=== PATIENT | female | born 1945 | race African-American/Black ===

== ENCOUNTER → 2016-09-16 | Outpatient (CLI) | payer MEDICARE, MEDICAID ==
--- NOTE | 2016-09-16 14:40 | WOMENS IMAGING REPORT ---
EXAM DESCRIPTION: BONE DENSITY HIP/SPINE COMPLETED DATE/TIME: 09/16/2016 2:00 pm REASON FOR STUDY: M81.0 Z12.31 ENCNTR SCREEN MAMMOGRAM FOR MALIGNANT NEOPLASM OF MELANIE M81.0 AGE-REL ATED OSTEOPOROSIS W/O CURRENT PATHOLOGICAL FRAC COMPARISON: None. TECHNIQUE: Dual-Energy X-ray Absorptiometry (DEXA) of the AP Spine and Hip. LIMITATIONS: None. FINDINGS: LUMBAR SPINE: The bone mineral density (BMD) measured from L1-L4 in the AP projection correlates with a T-score of -0.1, which is normal as defined by the World Health Organization. HIP: The bone mineral density (BMD) measured in the left femoral neck correlates with a T-score of -0.5, w hich is normal as defined by the World Health Organization. IMPRESSION: 1. LUMBAR SPINE: Normal 2. HIP: Normal COMMENT: The World Health Organization defines low BMD as follows: T-score: Normal: Greater than -1.0 Osteopenia: Between -1.0 and -2.5 Osteoporosis: Less than -2.5 without fractures Established osteoporosis: Less than -2.5 with fractures In general, you may wish to consider: Diagnosis Treatment Follow-up DEXA Normal BMD Prevention 2-3 years Osteopenia Prevention/Therapy 1-2 years Osteoporosis Therapy Yearly TECHNICAL DOCUMENTATION: JOB ID: [id number]- All Rights Reserved
--- NOTE | 2016-09-16 17:58 | WOMENS IMAGING REPORT ---
EXAM DESCRIPTION: BILAT SCREENING MAMMO W/CAD COMPLETED DATE/TIME: 09/16/2016 2:00 pm REASON FOR STUDY: Z12.31, ROUTINE SCREENING MAMMO Z12.31 ENCNTR SCREEN MAMMOGRAM FOR MALIGNANT NEOP LASM OF MELANIE M81.0 AGE-RELATED OSTEOPOROSIS W/O CURRENT PATHOLOGICAL FRAC COMPARISON: Multiple since 2008 TECHNIQUE: Standard craniocaudal and mediolateral oblique views of each breast recorded using digita l acquisition. LIMITATIONS: None. FINDINGS: Findings present which are benign by mammographic criteria. No suspicious masses, calcifi cations or architectural distortion. Pertinent benign findings: Benign bilateral breast skin calcifications Read with the assistance of CAD. .[facility] - R2 Cenova Version 1.3 .[facility] Imaging - R2 Cenova Version 1.[address] Imaging - R2 Cenova Version 2.4 .[facility] [place] - R2 Cenova Version 2.4 .[facility] - R2 Roll Hand Version 9.2 Benign mammographic findings may include one or more of the following: Smooth masses, popcorn/rim/co arse calcifications, asymmetries, post-procedure changes, and lesions with long-standing stability. IMPRESSION: BENIGN MAMMOGRAPHIC FINDINGS. BIRADS 2 BREAST DENSITY: a. The breasts are almost entirely fatty. BIRAD: 2 BENIGN FINDING(S) RECOMMENDATION: ROUTINE SCREENING COMMENT: The patient has been notified of the results by letter per SA requirements. Additional no tification policies are in place for contacting patient with suspicious or incomplete findings. Quality ID #[id number]: The [place] [employer] recommends an annual screening mammogram for women aged 40 years or over. This facility utilizes a reminder system to ensure that all patients receive reminder letters, and/or direct phone calls for appointments. This includes reminders for routine scr eening mammograms, diagnostic mammograms, or other Breast Imaging Interventions when appropriate. Th is patient will be placed in the appropriate reminder system. The [place] [employer] (ACR) has developed recommendations for screening MRI of the breast s in certain patient populations, to be used in conjunction with mammography. Breast MRI surveillanc e may be appropriate for women with more than 20% lifetime risk of developing breast cancer as deter mined by genetic testing, significant family history of the disease, or history of mantle radiation f or Hodgkins Disease. ACR Practice Guidelines 2008. TECHNICAL DOCUMENTATION: FINDING NUMBER: (1) ASSESSMENT: (1) JOB ID: [id number] [employer])- All Rights Reserved
== END ==
LOC: WI 14:05
PROVIDERS: ATTEND Family Medicine
DX: Z12.31 Encounter for screening mammogram for malignant neoplasm of breast (principal); M81.0 Age-related osteoporosis without current pathological fracture
CPT/HCPCS: 77080; G0202; 77067

== ENCOUNTER → 2017-11-10 | Outpatient (CLI) | payer MEDICARE, MEDICAID ==
--- NOTE | 2017-11-10 20:37 | XCELERA REPORT ---
[address] [address] Transthoracic Echocardiogram Report Name: WILD CALDERON Age: 72 yrs Gender: Female : 1945 Patient Status: Outpatient Patient Location: RAD Study Date: 11/10/2017 02:06 PM Height: 55 in Weight: 250 lb BSA: 1.9 m2 Procedure: A complete two-dimensional transthoracic echocardiogram was performed (2D, M-mode, spectral and color flow Doppler). The study was technically difficult with many images being suboptimal in quality. Reason For Study: SOB Ordering Physician: TYE MCCRACKEN Performed By: Marietta Alcaraz Interpretation Summary The left ventricular ejection fraction is preserved. Consider additional methods to assess LVEF such as MUGA scan, CTA heart, cardiac MRI, GARCIA, etc. if clinically indicated. There is mild concentric left ventricular hypertrophy. The left ventricle is grossly normal size. Doppler measurements suggest pseudonormalized left ventricular relaxation, which is associated with grade II/IV or mild to moderate diastolic dysfunction Not all wall segments were well visualized. Regional wall motion abnormalities cannot be excluded due to limited visualization. The right ventricle is mildly dilated. The right ventricle appears to be hypertrophied Right ventricular function cannot be assessed due to poor image quality. The left atrium is mildly dilated. The right atrium is mildly dilated. There is a trace amount of mitral regurgitation There is no mitral valve stenosis. There is no aortic valve stenosis No aortic regurgitation is present. There is no tricuspid stenosis. No tricuspid regurgitation. The aortic root is not well visualized but is probably normal size. The inferior vena cava appeared normal and decreased > 50% with respiration (RAP 5-10 mmHg) There is no pericardial effusion. MMode/2D Measurements & Calculations RVDd: 3.3 cm LVIDd: 4.3 cm FS: 37.9 % Ao root diam: 2.8 cm IVSd: 0.93 cm LVIDs: 2.7 cm EDV(Teich): Ao root area: 83.5 ml LVPWd: 0.95 cm 6.1 cm2 ESV(Teich): 26.4 ml EF(Teich): 68.4 % EDV(MOD-sp4): SV(MOD-sp4): 53.3 ml 40.8 ml ESV(MOD-sp4): 12.5 ml EF(MOD-sp4): 76.6 % Doppler Measurements & Calculations MV E max neetu: MV dec slope: Ao V2 max: LV V1 max P.3 cm/sec 112.5 cm/sec 2.7 mmHg MV A max neetu: 500.4 cm/sec2 Ao max PG: LV V1 max: 99.7 cm/sec MV dec time: 0.20 sec5.1 mmHg 81.6 cm/sec MV E/A: 1.00 PA V2 max: TR max neetu: 99.3 cm/sec 251.0 cm/sec PA max P.9 mmHg TR max P.2 mmHg Left Ventricle The left ventricle is grossly normal size. There is mild concentric left ventricular hypertrophy. The left ventricular ejection fraction is preserved. Consider additional methods to assess LVEF such as MUGA scan, CTA heart, cardiac MRI, GARCIA, etc. if clinically indicated. Doppler measurements suggest pseudonormalized left ventricular relaxation, which is associated with grade II/IV or mild to moderate diastolic dysfunction. Not all wall segments were well visualized. Regional wall motion abnormalities cannot be excluded due to limited visualization. Right Ventricle The right ventricle is mildly dilated. The right ventricle appears to be hypertrophied. Right ventricular function cannot be assessed due to poor image quality. Atria The right atrium is mildly dilated. The left atrium is mildly dilated. Interarterial septum not well visualized and not well dopplered. Cannot comment on ASD/PFO presence. Mitral Valve The mitral valve is grossly normal. There is no mitral valve stenosis. There is a trace amount of mitral regurgitation. Aortic Valve The aortic valve is not well visualized secondary to technical limitations. There is no aortic valve stenosis. No aortic regurgitation is present. Tricuspid Valve The tricuspid valve is not well visualized secondary to technical limitations. There is no tricuspid stenosis. No tricuspid regurgitation. Pulmonic Valve The pulmonic valve is not well visualized. Great Vessels The aortic root is not well visualized but is probably normal size. The inferior vena cava appeared normal and decreased > 50% with respiration (RAP 5-10 mmHg). Effusions There is no pericardial effusion. : TYE MCCRACKEN > Maria Guadalupe Carlos
== END ==
LOC: RAD 13:53
PROVIDERS: ATTEND Family Medicine
DX: R06.02 Shortness of breath (principal)
CPT/HCPCS: 93306

== ENCOUNTER 2017-12-14 20:58 | Inpatient (IN) | payer MEDICARE, MEDICAID ==
[2017-12-14 21:40] LABS: HEMATOCRIT 36.7 % (36.0-47.0); HEMOGLOBIN 12.3 g/dL (12.0-15.5); MEAN CORPUSCULAR HEMOGLOBIN 28.7 pg (27.0-33.4); MEAN CORPUSCULAR HGB CONC 33.4 g/dL (32.0-36.0); MEAN CORPUSCULAR VOLUME 86 fl (80-97); PLATELET COUNT 213 10^3/uL (150-450); RED BLOOD COUNT 4.28 10^6/uL (3.72-5.28); RED CELL DISTRIBUTION WIDTH 14.8 % (11.5-14.0)
[2017-12-14 21:49] LABS: INTERNATIONAL RATION (INR) 1.28; PROTHROMBIN TIME 16.6 SEC (11.4-15.4)
--- NOTE | 2017-12-14 21:56 | RADIOLOGY REPORT (SQ) ---
EXAM DESCRIPTION: XR CHEST 1 VIEW COMPLETED DATE/TME: 12/14/2017 21:26 CLINICAL HISTORY: 72 years, Female, ams COMPARISON: 07/29/2013. FINDINGS: Heart is mildly enlarged. No consolidation or pleural effusion. No pulmonary edema or pneumothorax. IMPRESSION: No acute disease.
[2017-12-14 22:00] LABS: ALANINE AMINOTRANSFERASE 27 U/L (9-52); ALKALINE PHOSPHATASE 124 U/L (38-126); ANION GAP 14 (5-19); ASPARTATE AMINO TRANSFERASE 48 U/L (14-36); BILIRUBIN,DIRECT 1.1 mg/dL (0.0-0.4); BILIRUBIN,TOTAL 2.5 mg/dL (0.2-1.3); BLOOD UREA NITROGEN 50 mg/dL (7-20); CALCIUM 8.2 mg/dL (8.4-10.2); CARBON DIOXIDE 23 mmol/L (22-30); CHLORIDE 99 mmol/L (98-107); GLUCOSE 171 mg/dL (75-110); POTASSIUM 3.7 mmol/L (3.6-5.0); SODIUM 136.1 mmol/L (137-145)
[2017-12-14 22:05] LABS: ABSOLUTE LYMPHOCYTES# (MANUAL) 0.7 10^3/uL (0.5-4.7); ABSOLUTE MONOCYTES # (MANUAL) 0.7 10^3/uL (0.1-1.4); ABSOLUTE NEUTROPHILS# (MANUAL) 21.6 10^3/uL (1.7-8.2); BASOPHILS % (MANUAL) 0 % (0-2); EOSINOPHILS % (MANUAL) 0 % (0-6); LYMPHOCYTES % (MANUAL) 3 % (13-45); MONOCYTES % (MANUAL) 3 % (3-13); SEGMENTED NEUTROPHILS % (MAN) 94 % (42-78); TOTAL CELLS COUNTED 100
[2017-12-14 22:06] LABS: ANISOCYTOSIS 1+; PLATELET COMMENT ADEQUATE; POLYCHROMASIA 1+
[2017-12-14] MEDS ORDERED: PIPERACILLIN/TAZOBACTAM 3.375 GM VIAL IV ONE (22:19)
--- NOTE | 2017-12-14 22:19 | ER Document Report ---
ED General - General Chief Complaint: Breathing Difficulty Stated Complaint: ALTERED MENTAL STATUS Time Seen by Provider: 12/14/17 21:26 Mode of Arrival: Ambulatory Information source: Relative, [facility] Records Cannot obtain history due to: Altered mental status Notes: 72-year-old female with hypertension, hyperlipidemia, coronary artery disease presents via EMS from home with her daughter who is concerned for confusion, abdominal pain. Daughter reports that the patient began complaining of abdominal pain yesterday. She states that her mother slept all day which is unusual for her. She states that she is more confused than usual. She is usually alert and oriented 3 but today cannot tell you the year or her birthday. Patient currently alert and oriented 1. TRAVEL OUTSIDE OF THE [place] IN LAST 30 DAYS: No - HPI Onset: Yesterday Onset/Duration: Gradual, Intermittent Associated symptoms: denies: Diarrhea, Fever, Vomiting - Related Data Allergies/Adverse Reactions: No Known Allergies Allergy (Verified 01/28/17 12:35) Past Medical History - General Information source: Relative, [facility] Records Cannot obtain history due to: Altered mental status - Social History Smoking Status: Former Smoker Frequency of alcohol use: None Drug Abuse: None Lives with: Family Family History: None, Reviewed & Not Pertinent - Past Medical History Cardiac Medical History: Reports: Hx Hypertension Denies: Hx Coronary Artery Disease - HIGH CHOLESTEROL, Hx Heart Attack Pulmonary Medical History: Reports: Hx Pneumonia - 1 year ago Denies: Hx Asthma, Hx Bronchitis, Hx COPD, Hx Tuberculosis Neurological Medical History: Denies: Hx Cerebrovascular Accident, Hx Seizures Renal/ Medical History: Denies: Hx Peritoneal Dialysis Musculoskeletal Medical History: Reports Hx Arthritis - "IN BACK" Psychiatric Medical History: Denies: Hx Depression Past Surgical History: Reports: Hx Hysterectomy. Denies: Hx Pacemaker - Immunizations Hx Diphtheria, Pertussis, Tetanus Vaccination: No Hx Pneumococcal Vaccination: 03/24/12 Review of Systems - Review of Systems -: Yes ROS unobtainable due to patient's medical condition Physical Exam - Vital signs Vitals: Temp Pulse BP Pulse Ox 99.4 F 132 H 94/38 L 92 12/14/17 21:08 12/14/17 21:08 12/14/17 21:08 12/14/17 21:08 Interpretation: Hypotensive, Tachycardic - Notes Notes: PHYSICAL EXAMINATION: GENERAL: Ill-appearing HEAD: Atraumatic, normocephalic. EYES: Pupils equal round and reactive to light, extraocular movements intact, conjunctiva are normal. ENT: Nares patent, oropharynx clear without exudates. Dry mucous membranes. NECK: Normal range of motion, supple without lymphadenopathy LUNGS: Breath sounds clear to auscultation bilaterally and equal. No wheezes rales or rhonchi. HEART: Tachycardic, regular rhythm ABDOMEN: Soft, nontender, nondistended abdomen. No guarding, no rebound. No masses appreciated. Female : deferred Musculoskeletal: Normal range of motion, no pitting or edema. No cyanosis. NEUROLOGICAL: GCS 10. Nonverbal. Does not follow commands PSYCH: Flat affect SKIN: Warm, Dry, normal turgor, no rashes or lesions noted. Course - Re-evaluation Re-evalutation: Laboratory 12/14/17 12/14/17 12/14/17 21:27 21:27 21:27 WBC 23.0 H RBC 4.28 Hgb 12.3 Hct 36.7 MCV 86 MCH 28.7 MCHC 33.4 RDW 14.8 H Plt Count 213 Total Counted 100 Seg Neutrophils % Not Reportable Seg Neuts % (Manual) 94 H Lymphocytes % Not Reportable Lymphocytes % (Manual) 3 L Monocytes % Not Reportable Monocytes % (Manual) 3 Eosinophils % Not Reportable Eosinophils % (Manual) 0 Basophils % Not Reportable Basophils % (Manual) 0 Absolute Neutrophils Not Reportable Abs Neuts (Manual) 21.6 H Absolute Lymphocytes Not Reportable Abs Lymphs (Manual) 0.7 Absolute Monocytes Not Reportable Abs Monocytes (Manual) 0.7 Absolute Eosinophils Not Reportable Absolute Eos (Manual) 0.0 Absolute Basophils Not Reportable Abs Basophils (Manual) 0.0 Platelet Comment ADEQUATE Polychromasia 1+ Anisocytosis 1+ PT 16.6 H INR 1.28 VBG pH VBG pCO2 VBG HCO3 VBG Base Excess Sodium 136.1 L Potassium 3.7 Chloride 99 Carbon Dioxide 23 Anion Gap 14 BUN 50 H Creatinine 3.54 H Est GFR ( Amer) 15 L Est GFR (Non-Af Amer) 13 L Glucose 171 H POC Glucose Lactic Acid Calcium 8.2 L Total Bilirubin 2.5 H Direct Bilirubin 1.1 H Neonat Total Bilirubin Not Reportable Neonat Direct Bilirubin Not Reportable Neonat Indirect Bili Not Reportable AST 48 H ALT 27 Alkaline Phosphatase 124 Total Protein 6.0 L Albumin 3.0 L 12/14/17 12/14/17 12/14/17 21:27 21:37 22:40 WBC RBC Hgb Hct MCV MCH MCHC RDW Plt Count Total Counted Seg Neutrophils % Seg Neuts % (Manual) Lymphocytes % Lymphocytes % (Manual) Monocytes % Monocytes % (Manual) Eosinophils % Eosinophils % (Manual) Basophils % Basophils % (Manual) Absolute Neutrophils Abs Neuts (Manual) Absolute Lymphocytes Abs Lymphs (Manual) Absolute Monocytes Abs Monocytes (Manual) Absolute Eosinophils Absolute Eos (Manual) Absolute Basophils Abs Basophils (Manual) Platelet Comment Polychromasia Anisocytosis PT INR VBG pH 7.38 VBG pCO2 37.2 VBG HCO3 21.6 VBG Base Excess -3.1 Sodium Potassium Chloride Carbon Dioxide Anion Gap BUN Creatinine Est GFR ( Amer) Est GFR (Non-Af Amer) Glucose POC Glucose 166 H Lactic Acid 5.0 H Calcium Total Bilirubin Direct Bilirubin Neonat Total Bilirubin Neonat Direct Bilirubin Neonat Indirect Bili AST ALT Alkaline Phosphatase Total Protein Albumin Chest X-Ray 12/14/17 21:26 IMPRESSION: No acute disease. Head CT 12/14/17 21:26 IMPRESSION: No acute intracranial hemorrhage. Abdomen/Pelvis CT 12/14/17 22:17 IMPRESSION: Mild left renal collecting system fullness and left perinephric and periureteral stranding. This may be due to recently passed calculus. No other renal calculi are noted. Calculus in the bladder may be due to recently passed calculus. 12/15/17 01:58 72-year-old female with hypertension, hyperlipidemia, coronary artery disease presents via EMS from home with her daughter who is concerned for confusion, abdominal pain. Daughter reports that the patient began complaining of abdominal pain yesterday. She states that her mother slept all day which is unusual for her. She states that she is more confused than usual. She is usually alert and oriented 3 but today cannot tell you the year or her birthday. Patient currently alert and oriented 1. Upon arrival patient is hypotensive, tachycardic but afebrile. She appears ill, mildly dehydrated. She does not follow commands. She is able to tell me her name but that is it. Daughter reports that this is a complete change from baseline. Patient is found to have a leukocytosis of 23. CMP shows a BUN of 54 and creatinine of 3.54 which is new for the patient. Lactate 5.0. Patient received IV fluids, vancomycin, Zosyn. We have been unable to obtain a urine or place a catheter. I do suspect urosepsis, pyelonephritis. Repeat lactate pending. 12/15/17 01:58 On reevaluation patient is more alert, awake. She is now alert and oriented x3. Daughter states that "she is back to her sense". She is answering questions and states she is nauseous. She did receive Zofran for this. Patient was accepted by Dr. Butst and is awaiting placement to the [facility]. Family at bedside and is aware of the patient's condition and need for admission. Last blood pressure prior to transfer to the floor is 109/68 with a heart rate of 95 and O2 saturation of 96%. 12/15/17 02:01 12/15/17 02:14 Repeat lactate is now 2.2 down from 5.0. Hillman obtained and urine pending. 12/15/17 04:03 12/15/17 04:05 - Vital Signs Vital signs: Temp Pulse Resp BP Pulse Ox 99.4 F 132 H 95/69 L 95 12/14/17 21:08 12/14/17 21:08 12/15/17 03:01 12/15/17 03:01 - Laboratory Result Diagrams: 12/14/17 21:27 12/14/17 21:27 Laboratory results interpreted by me: 12/14/17 12/14/17 12/14/17 21:27 21:27 21:27 WBC 23.0 H RDW 14.8 H Seg Neuts % (Manual) 94 H Lymphocytes % (Manual) 3 L Abs Neuts (Manual) 21.6 H PT 16.6 H Sodium 136.1 L BUN 50 H Creatinine 3.54 H Est GFR ( Amer) 15 L Est GFR (Non-Af Amer) 13 L Glucose 171 H POC Glucose Lactic Acid Calcium 8.2 L Total Bilirubin 2.5 H Direct Bilirubin 1.1 H AST 48 H Total Protein 6.0 L Albumin 3.0 L 12/14/17 12/14/17 21:27 21:37 WBC RDW Seg Neuts % (Manual) Lymphocytes % (Manual) Abs Neuts (Manual) PT Sodium BUN Creatinine Est GFR ( Amer) Est GFR (Non-Af Amer) Glucose POC Glucose 166 H Lactic Acid 5.0 H Calcium Total Bilirubin Direct Bilirubin AST Total Protein Albumin - Diagnostic Test Radiology reviewed: Image reviewed, Reports reviewed - EKG Interpretation by Me EKG shows normal: Sinus rhythm Rate: Normal Rhythm: NSR, PVC's Critical Care Note - Critical Care Note Total time excluding time spent on procedures (mins): 35 - Minutes of critical care time spent in direct contact evaluating and reevaluating the patient, treating symptoms, reviewing labs and studies and speaking with family and consultants excluding any procedures Discharge - Discharge Clinical Impression: Acute kidney injury, Tachycardia, Perinephric stranding Sepsis Qualifiers: Sepsis type: sepsis due to unspecified organism Qualified Code(s): A41.9 - Sepsis, unspecified organism Altered mental status Qualifiers: Altered mental status type: unspecified Qualified Code(s): R41.82 - Altered mental status, unspecified Hypotension Qualifiers: Hypotension type: unspecified hypotension type Qualified Code(s): I95.9 - Hypotension, unspecified Condition: Fair Disposition: ADMITTED INPATIENT Admitting Provider: [place] Admitted: [facility]
--- NOTE | 2017-12-14 22:39 | RADIOLOGY REPORT (SQ) ---
EXAM DESCRIPTION: CT HEAD WITHOUT IV CONTRAST COMPLETED DATE/TME: 12/14/2017 21:26 CLINICAL HISTORY: 72 years, Female, ams All CT scanners at this facility use dose modulation, iterative reconstruction, and/or weight based dosing when appropriate to reduce radiation dose to as low as reasonably achievable (ALARA). [facility]: Dose Right [facility]: CareDose [facility]: Dose Right [facility]: Teradose 4D [facility]: [employer] LIMITATIONS: None. Findings: No acute intracranial hemorrhage, mass effect or midline shift. No extra-axial fluid collections. Ventricles and subarachnoid spaces are preserved. Petty-white matter differentiation is preserved. Visualized paranasal sinuses and the mastoid air cells are clear. The skull is intact. IMPRESSION: No acute intracranial hemorrhage.
[2017-12-14 22:53] LABS: VENOUS BLOOD BASE EXCESS -3.1 mmol/L; VENOUS BLOOD HCO3 21.6 mmol/L (20-32); VENOUS BLOOD PCO2 37.2 mmHg (35-63); VENOUS BLOOD PH 7.38 (7.30-7.42)
--- NOTE | 2017-12-14 23:18 | RADIOLOGY REPORT (SQ) ---
EXAM DESCRIPTION: CT ABDOMEN PELVIS WITHOUT IV CONTRAST COMPLETED DATE/TME: 12/14/2017 22:17 CLINICAL HISTORY: 72 years, Female, abd pain sepsis All CT scanners at this facility use dose modulation, iterative reconstruction, and/or weight based dosing when appropriate to reduce radiation dose to as low as reasonably achievable (ALARA). [facility]: Dose Right [facility]: CareDose [facility]: Dose Right [facility]: Teradose 4D [facility]: [employer] Findings: Visualized lung bases demonstrate mild bibasilar dependent atelectatic changes. Liver, spleen, pancreas, gallbladder and adrenal glands are within normal limits. No biliary dilatation. Multiple bilateral renal cysts are noted. There is mild left renal collecting system fullness and mild left perinephric stranding. The left ureter is not significantly dilated. No left ureteral calculus is noted. Mild left mid periureteral stranding is noted. There is a small 3 mm calculus noted in the bladder layering on its right side. No dilated loops of bowel to suggest obstruction. Mild amount of stool in the colon. No abdominal or pelvic lymphadenopathy. Abdominal aorta mildly calcified without aneurysm. IMPRESSION: Mild left renal collecting system fullness and left perinephric and periureteral stranding. This may be due to recently passed calculus. No other renal calculi are noted. Calculus in the bladder may be due to recently passed calculus.
[2017-12-15] MEDS ORDERED: NORMAL SALINE 1000 ML 1,000 ML IV ONE ×2 (00:37→00:38)
[2017-12-15] MEDS ORDERED: VANCOMYCIN HCL INJ 1000 MG VIAL IV SCH (00:45)
[2017-12-15] MEDS ORDERED: ONDANSETRON HCL INJ/PF 4 MG/2 ML SDV IV PRN ×2 (01:43→07:24)
[2017-12-15 04:21] LABS: APPEARANCE,URINE TURBID; BILIRUBIN,URINE NEGATIVE (NEGATIVE); COLOR,URINE YELLOW; GLUCOSE, URINE NEGATIVE (NEGATIVE); KETONES,URINE NEGATIVE (NEGATIVE); LEUKOCYTE ESTERASE,URINE MODERATE (NEGATIVE); NITRITE,URINE NEGATIVE (NEGATIVE); PROTEIN,URINE >=500 mg/dL (NEGATIVE); URINE SPECIFIC GRAVITY 1.014; UROBILINOGEN,URINE NEGATIVE mg/dL (<2.0)
[2017-12-15] MEDS ORDERED: PIPERACILLIN/TAZOBACTAM 3.375 GM VIAL IV SCH (06:00)
[2017-12-15] MEDS ORDERED: DEXTROSE 50%-WATER 25 GM/50 ML DISP.SYRIN IV PRN ×2 (07:23)
[2017-12-15] MEDS ORDERED: GLUCAGON,HUMAN RECOMB 1 MG INJ IM PRN (07:23)
[2017-12-15] MEDS ORDERED: DEXTROSE 40% GEL 15 GM TUBE PO PRN ×2 (07:23)
[2017-12-15] MEDS ORDERED: IPRATROPIUM/ALBUTEROL 0.5-2.5 MG/3 ML AMPUL NEB PRN (07:24)
[2017-12-15] MEDS ORDERED: VANCOMYCIN HCL 0 MG in DEXTROSE 5%-WATER 250 ML IV NR (08:15)
[2017-12-15] MEDS: INSULIN LISPRO 100 UNIT/ML 3 ML VIAL SUBCUT PRN ×3 (08:37→17:31)
[2017-12-15] MEDS: NORMAL SALINE 1000 ML 1,000 ML IV PRN ×2 (08:37→17:35)
--- NOTE | 2017-12-15 08:54 | EKG REPORT ---
SEVERITY:- ABNORMAL ECG - SINUS TACHYCARDIA MULTIPLE VENTRICULAR PREMATURE COMPLEXES : Confirmed by: Lauryn Echevarria MD 15-Dec-2017 08:54:04
--- NOTE | 2017-12-15 08:54 | PDOC CONSULTATION ---
Consultation Consult Date: 12/12/17 Attending physician:: RACHEL IRVIN History of Present Illness Admission Date/PCP: 12/14/17 23:54 TYE MCCRACKEN MD History of Present Illness: WILD CALDERON is a 72 year old female Past Medical History Cardiac Medical History: Reports: Hypertension Denies: Coronary Artery Disease - HIGH CHOLESTEROL, Myocardial Infarction Pulmonary Medical History: Reports: Pneumonia - 1 year ago Denies: Asthma, Bronchitis, Chronic Obstructive Pulmonary Disease (COPD), Tuberculosis Neurological Medical History: Denies: Seizures Musculoskeltal Medical History: Reports: Arthritis - "IN BACK" Psychiatric Medical History: Denies: Depression Hematology: Reports: Anemia - During Past Surgical History Past Surgical History: Reports: Hysterectomy Denies: Pacemaker Social History Lives with: Family Smoking Status: Never Smoker Frequency of Alcohol Use: Rare Hx Recreational Drug Use: No Hx Prescription Drug Abuse: No Family History Family History: None, Reviewed & Not Pertinent Parental Family History Reviewed: No Children Family History Reviewed: No Sibling(s) Family History Reviewed.: No Medication/Allergy Home Medications: Aspirin [Aspirin EC] 81 mg PO DAILY 12/15/17 Atorvastatin Calcium [Lipitor 40 mg Tablet] 40 mg PO QHS 12/15/17 Clonidine HCl [Catapres 0.2 mg Tablet] 0.2 mg PO Q12 12/15/17 Metformin HCl [Glucophage 500 mg Tablet] 500 mg PO DAILY 12/15/17 Pindolol 5 mg PO BID 12/15/17 Raloxifene HCl [Evista 60 mg Tablet] 60 mg PO DAILY 12/15/17 Ramipril [Altace 10 mg Capsule] 10 mg PO DAILY 12/15/17 Triamterene/Hydrochlorothiazid [Triamterene-Hctz 75-50 mg Tab] 1 tab PO DAILY Verapamil HCl [Calan Sr 240 mg Tablet.sa] 240 mg PO Q12 12/15/17 Allergies/Adverse Reactions: No Known Allergies Allergy (Verified 01/28/17 12:35) Physical Exam Vital Signs: Temp Pulse Resp BP Pulse Ox 98.8 F 98 20 138/73 H 97 12/15/17 07:35 12/15/17 07:35 12/15/17 07:35 12/15/17 07:35 12/15/17 07:35 Intake & Output 12/14/17 12/15/17 12/16/17 06:59 06:59 06:59 Intake Total 1000 Output Total 100 Balance 900 Weight 137.9 kg Results Laboratory Results: 12/15/17 12/15/17 01:32 04:02 Lactic Acid 2.2 H Urine Color YELLOW Urine Appearance TURBID Urine pH 5.0 Ur Specific Prue 1.014 Urine Protein >=500 H Urine Glucose (UA) NEGATIVE Urine Ketones NEGATIVE Urine Blood LARGE H Urine Nitrite NEGATIVE Ur Leukocyte Esterase MODERATE H Urine WBC (Auto) >182 Urine RBC (Auto) 30 Impressions: Chest X-Ray 12/14/17 21:26 IMPRESSION: No acute disease. Head CT 12/14/17 21:26 IMPRESSION: No acute intracranial hemorrhage. Abdomen/Pelvis CT 12/14/17 22:17 IMPRESSION: Mild left renal collecting system fullness and left perinephric and periureteral stranding. This may be due to recently passed calculus. No other renal calculi are noted. Calculus in the bladder may be due to recently passed calculus. Assessment & Plan - Diagnosis (1) Sepsis Qualifiers: Sepsis type: sepsis due to unspecified organism Qualified Code(s): A41.9 - Sepsis, unspecified organism - Plan Summary Plan Summary: The CT there is no evidence of obstruction there is no evidence of stones in the collecting system there is only? Stone and the bladder and this might have passed from the left kidney. There is no need for intervention the 6 bladder stone is very small it can pass on its own unless there is concern that we can do cystoscopy and remove it. Keep on antibiotics for her pyelonephritis.
--- NOTE | 2017-12-15 09:55 | PDOC H&P ---
History of Present Illness Admission Date/PCP: 12/14/17 23:54 TYE MCCRACKEN MD Patient complains of: Altered mental status and sepsis History of Present Illness: WILD CALDERON is a 72 year old female This is a 72-year-old female with a significant history of the type 2 diabetes mellitus with the last A1c is less than 7 and history of the hypertensions hyperlipidemia and a history of the cardiomyopathy currently see a Dr. Echevarria with the EF is 70% with a history of the renal stoneAnd a history of the stent placement in the past brought to the emergency department by the daughterThe complaining of some more confusions and patient was complained of some abdominal pain yesterday In the emergency department patient have a CT scan of the abdomen and pelvis was done with so some possible left-sided pyelonephritis and the patient's white count was 23,000 and patient was confused Patient's have a no obstructions in the collecting systems Patient have a CT of the head was negative for any acute finding Since BUN and creatinine is also elevated which was normal on the last visit in my office When I saw the patient patient is alert awake asking for the food remember my name but seems to be more confused to me Patient's denied any chest pain denied any shortness of the breath Denied any abdominal pain Patient admits this point admitted for the sepsis pyelonephritis and we consult the urologist and attorney for further evaluations Past Medical History Cardiac Medical History: Reports: Coronary Artery Disease - HIGH CHOLESTEROL, Hypertension Denies: Myocardial Infarction Pulmonary Medical History: Reports: Pneumonia - 1 year ago Denies: Asthma, Bronchitis, Chronic Obstructive Pulmonary Disease (COPD), Tuberculosis Neurological Medical History: Denies: Seizures Endocrine Medical History: Reports: Diabetes Mellitus Type 2 Renal/ Medical History: Reports: Nephrolithiasis Musculoskeltal Medical History: Reports: Arthritis - "IN BACK" Psychiatric Medical History: Denies: Depression Hematology: Reports: Anemia - During Past Surgical History Past Surgical History: Reports: Hysterectomy Denies: Pacemaker Social History Information Source: Patient Lives with: Family Smoking Status: Never Smoker Frequency of Alcohol Use: Rare Hx Recreational Drug Use: No Hx Prescription Drug Abuse: No Family History Family History: None, Reviewed & Not Pertinent Parental Family History Reviewed: Yes Children Family History Reviewed: Yes Sibling(s) Family History Reviewed.: Yes Medication/Allergy Home Medications: Aspirin [Aspirin EC] 81 mg PO DAILY 12/15/17 Atorvastatin Calcium [Lipitor 40 mg Tablet] 40 mg PO QHS 12/15/17 Clonidine HCl [Catapres 0.2 mg Tablet] 0.2 mg PO Q12 12/15/17 Metformin HCl [Glucophage 500 mg Tablet] 500 mg PO DAILY 12/15/17 Pindolol 5 mg PO BID 12/15/17 Raloxifene HCl [Evista 60 mg Tablet] 60 mg PO DAILY 12/15/17 Ramipril [Altace 10 mg Capsule] 10 mg PO DAILY 12/15/17 Triamterene/Hydrochlorothiazid [Triamterene-Hctz 75-50 mg Tab] 1 tab PO DAILY Verapamil HCl [Calan Sr 240 mg Tablet.sa] 240 mg PO Q12 12/15/17 Allergies/Adverse Reactions: No Known Allergies Allergy (Verified 01/28/17 12:35) Review of Systems Constitutional: PRESENT: chills. ABSENT: fever(s), headache(s), weight gain, weight loss Eyes: ABSENT: visual disturbances Ears: ABSENT: hearing changes Cardiovascular: ABSENT: chest pain, dyspnea on exertion, edema, orthropnea, palpitations Respiratory: ABSENT: cough, hemoptysis Gastrointestinal: PRESENT: abdominal pain, nausea. ABSENT: constipation, diarrhea, hematemesis, hematochezia, vomiting Genitourinary: ABSENT: dysuria, hematuria Musculoskeletal: ABSENT: joint swelling Integumentary: ABSENT: rash, wounds Neurological: PRESENT: confusion. ABSENT: abnormal gait, abnormal speech, dizziness, focal weakness, syncope Psychiatric: ABSENT: anxiety, depression, homidical ideation, suicidal ideation Endocrine: ABSENT: cold intolerance, heat intolerance, menstrual abnormalities, polydipsia, polyuria Hematologic/Lymphatic: ABSENT: easy bleeding, easy bruising, lymphadenopathy Physical Exam Vital Signs: Temp Pulse Resp BP Pulse Ox 98.8 F 86 22 H 138/73 H 96 12/15/17 07:35 12/15/17 08:44 12/15/17 08:44 12/15/17 07:35 12/15/17 08:44 Intake & Output 12/14/17 12/15/17 12/16/17 06:59 06:59 06:59 Intake Total 1000 Output Total 100 Balance 900 Weight 137.9 kg General appearance: PRESENT: no acute distress, well-developed, well-nourished Head exam: PRESENT: atraumatic, normocephalic Eye exam: PRESENT: conjunctiva pink, EOMI, PERRLA. ABSENT: scleral icterus Ear exam: PRESENT: normal external ear exam Mouth exam: PRESENT: moist, tongue midline Neck exam: PRESENT: full ROM. ABSENT: carotid bruit, JVD, lymphadenopathy, thyromegaly Respiratory exam: PRESENT: clear to auscultation bharath Cardiovascular exam: PRESENT: RRR. ABSENT: diastolic murmur, rubs, systolic murmur Pulses: PRESENT: normal dorsalis pedis pul, +2 pedal pulses bilateral Vascular exam: PRESENT: normal capillary refill GI/Abdominal exam: PRESENT: normal bowel sounds, soft. ABSENT: distended, guarding, mass, organolmegaly, rebound, tenderness Rectal exam: PRESENT: deferred Extremities exam: ABSENT: pedal edema Neurological exam: PRESENT: alert, awake, oriented to person, oriented to place , CN II-XII grossly intact. ABSENT: motor sensory deficit Psychiatric exam: PRESENT: appropriate affect, normal mood. ABSENT: homicidal ideation, suicidal ideation Skin exam: PRESENT: dry, intact, warm. ABSENT: cyanosis, rash Results Laboratory Results: 12/15/17 12/15/17 01:32 04:02 Lactic Acid 2.2 H Urine Color YELLOW Urine Appearance TURBID Urine pH 5.0 Ur Specific [place] 1.014 Urine Protein >=500 H Urine Glucose (UA) NEGATIVE Urine Ketones NEGATIVE Urine Blood LARGE H Urine Nitrite NEGATIVE Ur Leukocyte Esterase MODERATE H Urine WBC (Auto) >182 Urine RBC (Auto) 30 Impressions: Chest X-Ray 12/14/17 21:26 IMPRESSION: No acute disease. Head CT 12/14/17 21:26 IMPRESSION: No acute intracranial hemorrhage. Abdomen/Pelvis CT 12/14/17 22:17 IMPRESSION: Mild left renal collecting system fullness and left perinephric and periureteral stranding. This may be due to recently passed calculus. No other renal calculi are noted. Calculus in the bladder may be due to recently passed calculus. Assessment & Plan - Diagnosis (1) Sepsis Qualifiers: Sepsis type: sepsis due to unspecified organism Qualified Code(s): A41.9 - Sepsis, unspecified organism Is this a current diagnosis for this admission?: Yes Plan: Due to the urinary tract infection or pyelonephritis Continues to IV fluid continues the broad-spectrum IV antibiotic until the cultures back (2) Pyelonephritis Is this a current diagnosis for this admission?: Yes Plan: Continues to IV antibiotic consult the urology (3) Hypertension Qualifiers: Hypertension type: essential hypertension Qualified Code(s): I10 - Essential (primary) hypertension Is this a current diagnosis for this admission?: Yes Plan: Currently running hyo Continues the IV fluid All blood pressure medicationhold (4) Acute kidney injury Is this a current diagnosis for this admission?: Yes Plan: Most likely had sepsis and urinary tract infections and pyelonephritis Continues to IV fluid The patient's afebrile and white count coming down with discontinuance the vancomycin's (5) Cardiomyopathy Qualifiers: Cardiomyopathy type: unspecified Qualified Code(s): I42.9 - Cardiomyopathy , unspecified Is this a current diagnosis for this admission?: Yes Plan: Currently all stable (6) Altered mental status Qualifiers: Altered mental status type: unspecified Qualified Code(s): R41.82 - Altered mental status, unspecified Is this a current diagnosis for this admission?: Yes Plan: Due to the above conditions we will repeat the lactic acid continues to IV fluid and IV antibiotic (7) UTI (urinary tract infection) Qualifiers: Urinary tract infection type: site unspecified Hematuria presence: with hematuria Qualified Code(s): N39.0 - Urinary tract infection, site not specified; R31.9 - Hematuria, unspecified; R31.9 - Hematuria, unspecified Is this a current diagnosis for this admission?: Yes Plan: Continuous IV antibiotic will wait for culture and sensitivity (8) Type 2 diabetes mellitus Qualifiers: Diabetes mellitus watermaster insulin use: without usp use Is this a current diagnosis for this admission?: Yes Plan: Will currently hold the metformin continues to sliding-scale - Time Time Spent: 50 to 70 Minutes Medications reviewed and adjusted accordingly: Yes Anticipated discharge: Home Within: Other - Inpatient Certification Based on my medical assessment, after consideration of the patient's comorbidities, presenting symptoms, or acuity I expect that the services needed warrant INPATIENT care.: Yes I certify that my determination is in accordance with my understanding of Medicare's requirements for reasonable and necessary INPATIENT services [42 CFR 412.3e].: Yes Medical Necessity: Need Close Monitoring Due to Risk of Patient Decompensation, Need For IV Fluids, Need for IV Antibiotics Post Hospital Care: D/C Analysis Tester Documentation - Plan Summary Plan Summary: See other MD orders
[2017-12-15 10:00] LABS: HEMATOCRIT 31.6 % (36.0-47.0); HEMOGLOBIN 10.8 g/dL (12.0-15.5); MEAN CORPUSCULAR HEMOGLOBIN 28.6 pg (27.0-33.4); MEAN CORPUSCULAR HGB CONC 34.1 g/dL (32.0-36.0); MEAN CORPUSCULAR VOLUME 84 fl (80-97); PLATELET COUNT 174 10^3/uL (150-450); RED BLOOD COUNT 3.77 10^6/uL (3.72-5.28); RED CELL DISTRIBUTION WIDTH 14.8 % (11.5-14.0); WHITE BLOOD COUNT 21.3 10^3/uL (4.0-10.5)
[2017-12-15 10:28] LABS: ABSOLUTE LYMPHOCYTES# (MANUAL) 0.6 10^3/uL (0.5-4.7); ABSOLUTE MONOCYTES # (MANUAL) 1.1 10^3/uL (0.1-1.4); ABSOLUTE NEUTROPHILS# (MANUAL) 19.6 10^3/uL (1.7-8.2); ANION GAP 12 (5-19); BAND NEUTROPHILS % (MANUAL) 2 % (3-5); BASOPHILS % (MANUAL) 0 % (0-2); BLOOD UREA NITROGEN 53 mg/dL (7-20); CALCIUM 7.4 mg/dL (8.4-10.2); CARBON DIOXIDE 21 mmol/L (22-30); CHLORIDE 103 mmol/L (98-107); EOSINOPHILS % (MANUAL) 0 % (0-6); GLUCOSE 140 mg/dL (75-110); LYMPHOCYTES % (MANUAL) 3 % (13-45); MONOCYTES % (MANUAL) 5 % (3-13); NUCLEATED RED BLOOD CELLS 1 /100 WBC (0); POTASSIUM 3.6 mmol/L (3.6-5.0); SEGMENTED NEUTROPHILS % (MAN) 90 % (42-78); SODIUM 135.9 mmol/L (137-145); TOTAL CELLS COUNTED 100
[2017-12-15 10:29] LABS: ANISOCYTOSIS SLIGHT; PLATELET COMMENT ADEQUATE; TOXIC GRANULATION SLIGHT; TOXIC VACUOLATION PRESENT
[2017-12-15] MEDS: FAMOTIDINE INJ/PF 20 MG/2 ML SDV IV SCH ×2 (11:12→23:13)
[2017-12-15] MEDS: PIPERACILLIN SODIUM/TAZOBACTAM 2.25 GM in NORMAL SALINE 50 ML IV SCH ×2 (11:13→17:30)
[2017-12-15] MEDS ORDERED: PIPERACILLIN SODIUM/TAZOBACTAM 3.375 GM in NORMAL SALINE 100 ML IV SCH (12:00)
[2017-12-15 12:02] LABS: ARTERIAL BLOOD BASE EXCESS -0.6 mmol/L; ARTERIAL BLOOD FIO2 28%; ARTERIAL BLOOD H2CO3 1.11 mmol/L (1.05-1.35); ARTERIAL BLOOD HCO3 23.4 mmol/L (20-24); ARTERIAL BLOOD O2 SATURATION 96.8 % (94-98); ARTERIAL BLOOD PCO2 36.8 mmHg (35-45); ARTERIAL BLOOD PH 7.42 (7.35-7.45); ARTERIAL BLOOD PO2 87.1 mmHg (80-100); ARTERIAL BLOOD TOTAL CO2 24.6 mmol/L (21-25)
[2017-12-15] MEDS: HEPARIN SOD (PORCINE) 5,000 UNIT/ML 1 ML SYRINGE SUBCUT SCH ×2 (15:09→23:13)
--- NOTE | 2017-12-15 16:32 | PDOC CONSULTATION ---
Consultation Consult Date: 12/15/17 Consult reason:: THADDEUS History of Present Illness Admission Date/PCP: 12/14/17 23:54 TYE MCCRACKEN MD History of Present Illness: WILD CALDERON is a 72 year old female with h/o Diabetes, Hypertension was admitted with altered mental status. Diagnostics done so far reveal high likelihood of possible transiently obstructing renal stone which has since passed and that which led to Pyelonephritis with GNR bacteremia and septic shock. Her CT done today shows evidence of the above. Labs and medications reviewed.Her blood c&s are growing GNR. Patient is sleeping but easily arousable but she is disoriented x 3.Denies any pains, dyspnea, fever or chills. Past Medical History Cardiac Medical History: Reports: Coronary Artery Disease - HIGH CHOLESTEROL, Hypertension-primary Denies: Myocardial Infarction Pulmonary Medical History: Reports: Pneumonia - 1 year ago Denies: Asthma, Bronchitis, Chronic Obstructive Pulmonary Disease (COPD), Tuberculosis Neurological Medical History: Denies: Seizures Endocrine Medical History: Reports: Diabetes Mellitus Type 2 Renal/ Medical History: Reports: Nephrolithiasis Musculoskeltal Medical History: Reports: Arthritis - "IN BACK" Psychiatric Medical History: Denies: Depression Past Surgical History Past Surgical History: Reports: Hysterectomy Denies: Pacemaker Social History Lives with: Family Smoking Status: Never Smoker Frequency of Alcohol Use: Rare Hx Recreational Drug Use: No Hx Prescription Drug Abuse: No Family History Parental Family History Reviewed: No Children Family History Reviewed: No Sibling(s) Family History Reviewed.: No Medication/Allergy Home Medications: Aspirin [Aspirin EC] 81 mg PO DAILY 12/15/17 Atorvastatin Calcium [Lipitor 40 mg Tablet] 40 mg PO QHS 12/15/17 Clonidine HCl [Catapres 0.2 mg Tablet] 0.2 mg PO Q12 12/15/17 Metformin HCl [Glucophage 500 mg Tablet] 500 mg PO DAILY 12/15/17 Pindolol 5 mg PO BID 12/15/17 Raloxifene HCl [Evista 60 mg Tablet] 60 mg PO DAILY 12/15/17 Ramipril [Altace 10 mg Capsule] 10 mg PO DAILY 12/15/17 Triamterene/Hydrochlorothiazid [Triamterene-Hctz 75-50 mg Tab] 1 tab PO DAILY Verapamil HCl [Calan Sr 240 mg Tablet.sa] 240 mg PO Q12 12/15/17 Allergies/Adverse Reactions: No Known Allergies Allergy (Verified 01/28/17 12:35) Review of Systems Constitutional: PRESENT: fatigue, weakness. ABSENT: chills, fever(s), headache( s), night sweats Nose, Mouth, and Throat: ABSENT: mouth pain, sore throat Cardiovascular: ABSENT: chest pain, dyspnea on exertion, edema, orthropnea, palpitations Respiratory: ABSENT: hemoptysis Gastrointestinal: ABSENT: abdominal pain, diarrhea, dysphagia, heartburn, hematemesis Musculoskeletal: ABSENT: back pain Neurological: PRESENT: confusion, weakness. ABSENT: focal weakness Hematologic/Lymphatic: ABSENT: easy bleeding, easy bruising, lymphadenopathy Physical Exam Vital Signs: Temp Pulse Resp BP Pulse Ox 99.4 F 94 20 125/73 96 12/15/17 15:31 12/15/17 15:31 12/15/17 15:31 12/15/17 15:31 12/15/17 16:08 Intake & Output 12/14/17 12/15/17 12/16/17 06:59 06:59 06:59 Intake Total 1000 1287 Output Total 100 200 Balance 900 1087 Weight 137.9 kg General appearance: PRESENT: no acute distress, obese Eye exam: PRESENT: conjunctiva pink, EOMI, PERRLA Ear exam: PRESENT: normal external ear exam Mouth exam: PRESENT: moist, neck supple Neck exam: ABSENT: lymphadenopathy, meningismus, tenderness, thyromegaly, tracheal deviation Respiratory exam: PRESENT: clear to auscultation bharath. ABSENT: crackles Cardiovascular exam: PRESENT: +S1, +S2 GI/Abdominal exam: PRESENT: normal bowel sounds, soft. ABSENT: organomegaly, tenderness Extremities exam: ABSENT: pedal edema Neurological exam: PRESENT: altered. ABSENT: oriented to person, oriented to place, oriented to time Psychiatric exam: PRESENT: flat affect Skin exam: ABSENT: cyanosis, erythema, mottled Results Laboratory Results: 12/15/17 09:38 12/15/17 09:38 12/15/17 12/15/17 12/15/17 01:32 04:02 09:38 WBC 21.3 H RBC 3.77 Hgb 10.8 L Hct 31.6 L MCV 84 MCH 28.6 MCHC 34.1 RDW 14.8 H Plt Count 174 Seg Neutrophils % Not Reportable Lymphocytes % Not Reportable Monocytes % Not Reportable Eosinophils % Not Reportable Basophils % Not Reportable Absolute Neutrophils Not Reportable Absolute Lymphocytes Not Reportable Absolute Monocytes Not Reportable Absolute Eosinophils Not Reportable Absolute Basophils Not Reportable Carbonic Acid HCO3/H2CO3 Ratio ABG pH ABG pCO2 ABG pO2 ABG HCO3 ABG O2 Saturation ABG Base Excess FiO2 Sodium Potassium Chloride Carbon Dioxide Anion Gap BUN Creatinine Est GFR ( Amer) Est GFR (Non-Af Amer) Glucose Lactic Acid 2.2 H Calcium Urine Color YELLOW Urine Appearance TURBID Urine pH 5.0 Ur Specific [place] 1.014 Urine Protein >=500 H Urine Glucose (UA) NEGATIVE Urine Ketones NEGATIVE Urine Blood LARGE H Urine Nitrite NEGATIVE Ur Leukocyte Esterase MODERATE H Urine WBC (Auto) >182 Urine RBC (Auto) 30 12/15/17 12/15/17 12/15/17 09:38 09:38 11:40 WBC RBC Hgb Hct MCV MCH MCHC RDW Plt Count Seg Neutrophils % Lymphocytes % Monocytes % Eosinophils % Basophils % Absolute Neutrophils Absolute Lymphocytes Absolute Monocytes Absolute Eosinophils Absolute Basophils Carbonic Acid 1.11 HCO3/H2CO3 Ratio 21:1 ABG pH 7.42 ABG pCO2 36.8 ABG pO2 87.1 ABG HCO3 23.4 ABG O2 Saturation 96.8 ABG Base Excess -0.6 FiO2 28% Sodium 135.9 L Potassium 3.6 Chloride 103 Carbon Dioxide 21 L Anion Gap 12 BUN 53 H Creatinine 3.02 H Est GFR ( Amer) 18 L Est GFR (Non-Af Amer) 15 L Glucose 140 H Lactic Acid 1.4 Calcium 7.4 L Urine Color Urine Appearance Urine pH Ur Specific [place] Urine Protein Urine Glucose (UA) Urine Ketones Urine Blood Urine Nitrite Ur Leukocyte Esterase Urine WBC (Auto) Urine RBC (Auto) Impressions: Chest X-Ray 12/14/17 21:26 IMPRESSION: No acute disease. Head CT 12/14/17 21:26 IMPRESSION: No acute intracranial hemorrhage. Abdomen/Pelvis CT 12/14/17 22:17 IMPRESSION: Mild left renal collecting system fullness and left perinephric and periureteral stranding. This may be due to recently passed calculus. No other renal calculi are noted. Calculus in the bladder may be due to recently passed calculus. Assessment & Plan - Diagnosis (1) Acute kidney injury Is this a current diagnosis for this admission?: Yes Plan: Oliguric. From [facility] related to Pyelonephritis with GNR bacteremia and septic shock. Renal US without [place]. Continue current medications but I am going to stop the Vanc. No acute indications for [employer] currently. Has Foleys in. (2) Altered mental status Qualifiers: Altered mental status type: unspecified Qualified Code(s): R41.82 - Altered mental status, unspecified Is this a current diagnosis for this admission?: Yes Plan: Secondary to the septic status.Should recover concomitant to the recovery from her bacterial insult unless other insults occur. (3) Cardiomyopathy Qualifiers: Cardiomyopathy type: unspecified Qualified Code(s): I42.9 - Cardiomyopathy , unspecified Is this a current diagnosis for this admission?: Yes Plan: As per initial H&P.Monitor.No signs of decompensation. (4) Hypertension Qualifiers: Hypertension type: essential hypertension Qualified Code(s): I10 - Essential (primary) hypertension Is this a current diagnosis for this admission?: Yes Plan: Was hypotensive around the presentation and now slowly seems to be recovering.Not on any pressor agent (5) Pyelonephritis Is this a current diagnosis for this admission?: Yes Plan: Blood C&S are growing GNR.Continue on Pip - Tazo and stop the vanc. (6) Septic shock Plan: Currently on fluids without any pressors which she may need ,Monitor closely.
[2017-12-15] MEDS ORDERED: PINDOLOL 5 MG PO SCH (18:00)
[2017-12-15] MEDS ORDERED: DILTIAZEM HCL/D5W 125 MG/125 ML RTUINJ IV PRN (18:22)
[2017-12-15] MEDS: PINDOLOL 5 MG PO SCH (18:40)
--- NOTE | 2017-12-15 21:55 | EKG REPORT ---
SEVERITY:- ABNORMAL ECG - ATRIAL FIBRILLATION WITH RAPID V-RATE VENTRICULAR PREMATURE COMPLEX : Confirmed by: Lauryn Echevarria MD 15-Dec-2017 21:55:34
[2017-12-15] MEDS ORDERED: VANCOMYCIN HCL 1,000 MG in DEXTROSE 5%-WATER 250 ML IV SCH (22:00)
[2017-12-15] MEDS: ACETAMINOPHEN 325 MG TABLET PO PRN (23:12)
[2017-12-16] MEDS: PIPERACILLIN SODIUM/TAZOBACTAM 2.25 GM in NORMAL SALINE 50 ML IV SCH ×3 (01:54→17:18)
[2017-12-16] MEDS: NORMAL SALINE 1000 ML 1,000 ML IV PRN ×2 (01:59→13:43)
[2017-12-16] MEDS: DILTIAZEM HCL 30 MG TABLET PO SCH ×4 (05:10→17:18)
[2017-12-16 05:18] LABS: ABSOLUTE EOSINOPHILS # (AUTO) 0.2 10^3/uL (0.0-0.6); ABSOLUTE LYMPHOCYTES (AUTO) 1.7 10^3/uL (0.5-4.7); ABSOLUTE MONOCYTES (AUTO) 1.2 10^3/uL (0.1-1.4); ABSOLUTE NEUT (AUTO) 13.3 10^3/uL (1.7-8.2); BASOPHILS % (AUTO) 0.2 % (0-2); HEMATOCRIT 32.7 % (36.0-47.0); HEMOGLOBIN 10.9 g/dL (12.0-15.5); LYMPHOCYTES % (AUTO) 10.2 % (13-45); MEAN CORPUSCULAR HEMOGLOBIN 28.2 pg (27.0-33.4); MEAN CORPUSCULAR HGB CONC 33.3 g/dL (32.0-36.0); MEAN CORPUSCULAR VOLUME 85 fl (80-97); MONOCYTES % (AUTO) 7.4 % (3-13); PLATELET COUNT 195 10^3/uL (150-450); RED BLOOD COUNT 3.86 10^6/uL (3.72-5.28); RED CELL DISTRIBUTION WIDTH 14.9 % (11.5-14.0); SEGMENTED NEUTROPHILS % (AUTO) 81.2 % (42-78); TOTAL CELLS COUNTED % (AUTO) 100 %; WHITE BLOOD COUNT 16.4 10^3/uL (4.0-10.5)
[2017-12-16] MEDS: HEPARIN SOD (PORCINE) 5,000 UNIT/ML 1 ML SYRINGE SUBCUT SCH ×3 (05:29→21:52)
[2017-12-16 05:37] LABS: ANION GAP 12 (5-19); BLOOD UREA NITROGEN 47 mg/dL (7-20); CALCIUM 7.4 mg/dL (8.4-10.2); CARBON DIOXIDE 20 mmol/L (22-30); CHLORIDE 105 mmol/L (98-107); GLUCOSE 155 mg/dL (75-110); POTASSIUM 3.5 mmol/L (3.6-5.0)
[2017-12-16] MEDS: PINDOLOL 5 MG PO SCH ×2 (05:54→17:18)
--- NOTE | 2017-12-16 08:20 | RADIOLOGY REPORT (SQ) ---
EXAM DESCRIPTION: U/S RETROPERITON (RENAL/AORTA) COMPLETED DATE/TIME: 12/16/2017 7:16 am REASON FOR STUDY: pylonephritis COMPARISON: None. TECHNIQUE: Dynamic and static grayscale images acquired of the kidneys and bladder and recorded on P ACS. Additional selected color Doppler and spectral images recorded. LIMITATIONS: The examination is limited due to the patient's body habitus. FINDINGS: RIGHT KIDNEY: The right kidney measures 12.5 x 7.4 x 5 9 cm, normal size. Normal echogen icity. A 4.1 x 3.9 x 3.8 cm cyst in the upper pole of the kidney. No hydronephrosis. No calcificati ons. LEFT KIDNEY: The left kidney measures 10.2 x 7.1 x 5.9 cm, normal size. Normal echogenicity. No emma d or suspicious masses. No hydronephrosis. No calcifications. BLADDER: The patient has a Hillman catheter. OTHER FINDINGS: No other significant finding. IMPRESSION: 1. The examination is limited due to the patient's body habitus. 2. No evidence of hydronephrosis. 3. Right renal cyst. TECHNICAL DOCUMENTATION: JOB ID: [id number] [employer]- All Rights Reserved Reading location - IP/workstation name: [email or web address]
--- NOTE | 2017-12-16 08:32 | PDOC PROGRESS REPORT ---
Subjective Progress Note for:: 12/16/17 Subjective:: Patient is feeling much better Patient is some more alert awake not fully oriented to the time place and person 's Patient's denied any abdominal pain no chest pain no short of breath pt off the Cardizem drips Patient seen by the urologist and suggest no need for any surgical interventions Patient seen by the nephrology and cardiology Reason For Visit: SEPSIS Physical Exam Vital Signs: Temp Pulse Resp BP Pulse Ox 97.7 F 95 14 93/63 L 95 12/16/17 07:36 12/16/17 07:45 12/16/17 07:45 12/16/17 07:36 12/16/17 07:45 Intake & Output 12/15/17 12/16/17 12/17/17 06:59 06:59 06:59 Intake Total 1000 3696 598 Output Total 100 1125 Balance 900 2571 598 Weight 137.9 kg 139.9 kg General appearance: PRESENT: no acute distress, well-developed, well-nourished Head exam: PRESENT: atraumatic, normocephalic Eye exam: PRESENT: conjunctiva pink, EOMI, PERRLA. ABSENT: scleral icterus Ear exam: PRESENT: normal external ear exam Mouth exam: PRESENT: moist, tongue midline Neck exam: PRESENT: full ROM. ABSENT: carotid bruit, JVD, lymphadenopathy, thyromegaly Respiratory exam: PRESENT: clear to auscultation bharath Cardiovascular exam: PRESENT: RRR. ABSENT: diastolic murmur, rubs, systolic murmur Pulses: PRESENT: normal dorsalis pedis pul, +2 pedal pulses bilateral Vascular exam: PRESENT: normal capillary refill GI/Abdominal exam: PRESENT: normal bowel sounds, soft. ABSENT: distended, guarding, mass, organolmegaly, rebound, tenderness Rectal exam: PRESENT: deferred Extremities exam: ABSENT: pedal edema Neurological exam: PRESENT: alert, awake, oriented to person, oriented to place , oriented to time, oriented to situation, CN II-XII grossly intact. ABSENT: motor sensory deficit Psychiatric exam: PRESENT: appropriate affect, normal mood. ABSENT: homicidal ideation, suicidal ideation Skin exam: PRESENT: dry, intact, warm. ABSENT: cyanosis, rash Results Laboratory Results: 12/16/17 04:43 12/16/17 04:43 09/12/15/17 12/15/17 09:38 09:38 09:38 WBC 21.3 H RBC 3.77 Hgb 10.8 L Hct 31.6 L MCV 84 MCH 28.6 MCHC 34.1 RDW 14.8 H Plt Count 174 Seg Neutrophils % Not Reportable Lymphocytes % Not Reportable Monocytes % Not Reportable Eosinophils % Not Reportable Basophils % Not Reportable Absolute Neutrophils Not Reportable Absolute Lymphocytes Not Reportable Absolute Monocytes Not Reportable Absolute Eosinophils Not Reportable Absolute Basophils Not Reportable Carbonic Acid HCO3/H2CO3 Ratio ABG pH ABG pCO2 ABG pO2 ABG HCO3 ABG O2 Saturation ABG Base Excess FiO2 Sodium 135.9 L Potassium 3.6 Chloride 103 Carbon Dioxide 21 L Anion Gap 12 BUN 53 H Creatinine 3.02 H Est GFR ( Amer) 18 L Est GFR (Non-Af Amer) 15 L Glucose 140 H Lactic Acid 1.4 Calcium 7.4 L 12/15/17 12/16/17 12/16/17 11:40 04:43 04:43 WBC 16.4 H RBC 3.86 Hgb 10.9 L Hct 32.7 L MCV 85 MCH 28.2 MCHC 33.3 RDW 14.9 H Plt Count 195 Seg Neutrophils % 81.2 H Lymphocytes % 10.2 L Monocytes % 7.4 Eosinophils % 1.0 Basophils % 0.2 Absolute Neutrophils 13.3 H Absolute Lymphocytes 1.7 Absolute Monocytes 1.2 Absolute Eosinophils 0.2 Absolute Basophils 0.0 Carbonic Acid 1.11 HCO3/H2CO3 Ratio 21:1 ABG pH 7.42 ABG pCO2 36.8 ABG pO2 87.1 ABG HCO3 23.4 ABG O2 Saturation 96.8 ABG Base Excess -0.6 FiO2 28% Sodium 137.0 Potassium 3.5 L Chloride 105 Carbon Dioxide 20 L Anion Gap 12 BUN 47 H Creatinine 2.27 H Est GFR ( Amer) 26 L Est GFR (Non-Af Amer) 21 L Glucose 155 H Lactic Acid Calcium 7.4 L Impressions: Chest X-Ray 12/14/17 21:26 IMPRESSION: No acute disease. Head CT 12/14/17 21:26 IMPRESSION: No acute intracranial hemorrhage. Abdomen/Pelvis CT 12/14/17 22:17 IMPRESSION: Mild left renal collecting system fullness and left perinephric and periureteral stranding. This may be due to recently passed calculus. No other renal calculi are noted. Calculus in the bladder may be due to recently passed calculus. Renal Ultrasound 12/16/17 00:00 IMPRESSION: 1. The examination is limited due to the patient's body habitus. 2. No evidence of hydronephrosis. 3. Right renal cyst. Assessment & Plan - Diagnosis (1) Sepsis Qualifiers: Sepsis type: sepsis due to unspecified organism Qualified Code(s): A41.9 - Sepsis, unspecified organism Is this a current diagnosis for this admission?: Yes Plan: Gram-negative sepsis currently continues to IV Zosyn wait for culture and sensitivity Continues to IV fluid (2) Pyelonephritis Is this a current diagnosis for this admission?: Yes Plan: Continuous IV antibiotic (3) Hypertension Qualifiers: Hypertension type: essential hypertension Qualified Code(s): I10 - Essential (primary) hypertension Is this a current diagnosis for this admission?: Yes Plan: Currently all stable (4) Acute kidney injury Is this a current diagnosis for this admission?: Yes Plan: Currently all improving continuous IV antibiotic continuous IV fluid and follow with nephrology (5) Cardiomyopathy Qualifiers: Cardiomyopathy type: unspecified Qualified Code(s): I42.9 - Cardiomyopathy , unspecified Is this a current diagnosis for this admission?: Yes Plan: Patient was Cardizem drip due to the tachycardia currently off restart the patient's beta-vilma and p.o. Cardizem right now (6) Altered mental status Qualifiers: Altered mental status type: unspecified Qualified Code(s): R41.82 - Altered mental status, unspecified Is this a current diagnosis for this admission?: Yes Plan: Due to the sepsis currently on getting better (7) UTI (urinary tract infection) Qualifiers: Urinary tract infection type: site unspecified Hematuria presence: with hematuria Qualified Code(s): N39.0 - Urinary tract infection, site not specified; R31.9 - Hematuria, unspecified; R31.9 - Hematuria, unspecified Is this a current diagnosis for this admission?: Yes Plan: Continuous IV antibiotic will wait for culture and sensitivity (8) Type 2 diabetes mellitus Qualifiers: Diabetes mellitus technician terminal and repeater insulin use: without technician terminal and repeater use Is this a current diagnosis for this admission?: Yes Plan: Will currently hold the metformin continues to sliding-scale - Time Time Spent with patient: 25-34 minutes Medications reviewed and adjusted accordingly: Yes Anticipated discharge: Home Within: Other - Inpatient Certification Medical Necessity: Significant Comorbidiites Make Outpatient Treatment Too Risky , Need Close Monitoring Due to Risk of Patient Decompensation, Need For IV Fluids, Need for IV Antibiotics 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
[2017-12-16] MEDS: FAMOTIDINE INJ/PF 20 MG/2 ML SDV IV SCH ×2 (10:17→21:52)
[2017-12-16] MEDS ORDERED: POTASSIUM CHLORIDE 20 MEQ/15 ML UDCUP PO ONE (12:30)
[2017-12-16] MEDS ORDERED: DIGOXIN INJ 0.5 MG/2 ML AMPULE IV ONE (12:30)
[2017-12-16] MEDS: INSULIN LISPRO 100 UNIT/ML 3 ML VIAL SUBCUT PRN ×3 (12:35→21:52)
--- NOTE | 2017-12-16 14:14 | PDOC PROGRESS REPORT ---
Subjective Progress Note for:: 12/16/17 Subjective:: Patient was seen today laying in bed. At the time she was not short of breath. She denied chest pain, backpain, n/v/d/c. Her urine out put increased to 1, 125mL. She currently has a morales catheter in place. Reason For Visit: SEPSIS Physical Exam Vital Signs: Temp Pulse Resp BP Pulse Ox 98.4 F 58 L 14 108/68 90 L 12/16/17 12:24 12/16/17 12:24 12/16/17 12:24 12/16/17 12:24 12/16/17 12:24 Intake & Output 12/15/17 12/16/17 12/17/17 06:59 06:59 06:59 Intake Total 1000 3696 1522 Output Total 100 1125 400 Balance 900 2571 1122 Weight 137.9 kg 139.9 kg General appearance: PRESENT: no acute distress, well-developed, well-nourished Mouth exam: PRESENT: moist, neck supple Neck exam: PRESENT: full ROM. ABSENT: JVD Respiratory exam: PRESENT: clear to auscultation bharath. ABSENT: accessory muscle use, crackles, rales, rhonchi, wheezes Cardiovascular exam: PRESENT: +S1, +S2 GI/Abdominal exam: PRESENT: normal bowel sounds, soft. ABSENT: organomegaly, tenderness Extremities exam: ABSENT: pedal edema, tenderness, +1 edema, +2 edema Musculoskeletal exam: PRESENT: normal inspection. ABSENT: tenderness Neurological exam: PRESENT: alert, awake, oriented to person, oriented to place Skin exam: PRESENT: dry, intact. ABSENT: cyanosis, warm Results Laboratory Results: 12/16/17 04:43 12/16/17 04:43 12/16/17 12/16/17 04:43 04:43 WBC 16.4 H RBC 3.86 Hgb 10.9 L Hct 32.7 L MCV 85 MCH 28.2 MCHC 33.3 RDW 14.9 H Plt Count 195 Seg Neutrophils % 81.2 H Lymphocytes % 10.2 L Monocytes % 7.4 Eosinophils % 1.0 Basophils % 0.2 Absolute Neutrophils 13.3 H Absolute Lymphocytes 1.7 Absolute Monocytes 1.2 Absolute Eosinophils 0.2 Absolute Basophils 0.0 Sodium 137.0 Potassium 3.5 L Chloride 105 Carbon Dioxide 20 L Anion Gap 12 BUN 47 H Creatinine 2.27 H Est GFR ( Amer) 26 L Est GFR (Non-Af Amer) 21 L Glucose 155 H Calcium 7.4 L Impressions: Chest X-Ray 12/14/17 21:26 IMPRESSION: No acute disease. Head CT 12/14/17 21:26 IMPRESSION: No acute intracranial hemorrhage. Abdomen/Pelvis CT 12/14/17 22:17 IMPRESSION: Mild left renal collecting system fullness and left perinephric and periureteral stranding. This may be due to recently passed calculus. No other renal calculi are noted. Calculus in the bladder may be due to recently passed calculus. Renal Ultrasound 12/16/17 00:00 IMPRESSION: 1. The examination is limited due to the patient's body habitus. 2. No evidence of hydronephrosis. 3. Right renal cyst. Assessment & Plan - Diagnosis (1) Acute kidney injury Is this a current diagnosis for this admission?: Yes Plan: nonoliguric, currently improving, will look to decrease NS to 50mL an hour to prevent fluid overload. (2) Pyelonephritis Is this a current diagnosis for this admission?: Yes Plan: all cultures so far showing gram negative bacteria. Continue pip-tazo for now. (3) Sepsis Qualifiers: Sepsis type: sepsis due to unspecified organism Qualified Code(s): A41.9 - Sepsis, unspecified organism Is this a current diagnosis for this admission?: Yes Plan: awaiting culture sensitivities (4) Hypertension Qualifiers: Hypertension type: essential hypertension Qualified Code(s): I10 - Essential (primary) hypertension Is this a current diagnosis for this admission?: Yes Plan: low end of normal right now, will monitor. Is on diltiazem for heart rate control (5) Altered mental status Qualifiers: Altered mental status type: unspecified Qualified Code(s): R41.82 - Altered mental status, unspecified Is this a current diagnosis for this admission?: Yes Plan: looks to be slightly improved from what was described previously. (6) Type 2 diabetes mellitus Qualifiers: Diabetes mellitus nursing home insulin use: without nursing home use Is this a current diagnosis for this admission?: Yes
--- NOTE | 2017-12-16 17:02 | EKG REPORT ---
SEVERITY:- ABNORMAL ECG - ATRIAL FIBRILLATION : Confirmed by: Lauryn Echevarria MD 16-Dec-2017 17:01:07
--- NOTE | 2017-12-16 22:25 | Progress Note ---
Provider Note Provider Note: CARDIOLOGY PROGRESS NOTE by Dr. Lauryn Echevarria on 12/16/2017. SUBJECTIVE: The patient continues to be in atrial fibrillation, but since her heart rate was well controlled she has been started on p.o. Cardizem at 30 mg p.o. every 8 hours, in view of the patient's blood pressure being in the low 100s. But when I saw the patient's heart rate went up to 129-130 bpm, and in view of the marginal blood pressure I have given her a dose of digoxin 0.25 mg IV push x1. There is slight improvement in the renal function. The patient denies any chest pain or discomfort. There is no shortness of breath there is no PND orthopnea. There is no leg edema. There is no TIA or CVA symptoms. Note that the patient is not very well educated about her disease. Hence I am not sure if she understands the side effects of chronic anticoagulation. Hence will hold off until I speak to the patient's family. There is no ventricular arrhythmias. There is no hematuria pyuria or dysuria. PHYSICAL EXAMINATION: The patient is morbidly obese, but well-groomed, and in no acute distress. Selected Entries 12/16/17 12/16/17 12:24 13:00 Temperature 98.4 F Temperature Axillary Source Heart Rate ( 129 Monitors) Respiratory 14 Rate Blood Pressure 108/68 Blood Pressure 81 Mean BP Location Left Arm BP Position Supine O2 Sat by Pulse 90 L Oximetry Oxygen Flow 3.00 Rate Oxygen Delivery Nasal Cannula Method HEAD: Head is atraumatic normocephalic. EYES: Pupils are equal round regular reactive to light accommodation, extraocular movements are normal. There is no conjunctival pallor. There is no scleral icterus. ENT: Is negative. SKIN: There is no skin rashes or skin lesions. There is no petechia or ecchymosis. NECK: Is supple there is no JVD, there is no lymphadenopathy. Carotids equal without any bruits. There is no goiter. There is no accessory muscles of respiration in use. LUNGS: Is clear to auscultation percussion, without any rhonchi rales or wheezing. There is no chest wall tenderness. HEART: S1-S2 is heard, S1 is of variable intensity. There is no S3 gallop or S4 gallop. There is systolic murmur left sternal border and apex. There is no rub. ABDOMEN: Soft, obese. Nontender. Bowel sounds well heard. There is no hepatosplenomegaly. There is no rebound guarding or rigidity. EXTREMITIES: Femorals are deep, femorals are diminished. There is no femoral bruits. Leg pulses are diminished. There is no pedal edema. There is no cyanosis or clubbing. There is no DVT or cellulitis. 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 PSYCHIATRIC: Although the patient judgment and insight intact she is of slightly slow mentation. The patient does not appear to be agitated. She does not appear to be anxious. Diagnostics: Patient's EKG shows atrial fibrillation. 12/16/17 12/16/17 04:43 04:43 WBC 16.4 H Hgb 10.9 L Hct 32.7 L Plt Count 195 Sodium 137.0 Potassium 3.5 L Chloride 105 Carbon Dioxide 20 L BUN 47 H Creatinine 2.27 H Est GFR ( Amer) 26 L Glucose 155 H Calcium 7.4 L IMPRESSION/RECOMMENDATION: 1. Atrial flutter/fibrillation. At present patient atrial fibrillation with somewhat fast ventricular response. Continue the patient on Cardizem p.o. Will give 1 dose of digoxin to see if this will bring the rate down. Also would correct the patient's hypokalemia, which could be a factor in the patient' s heart rate being fast. 2. ACUTE pyelonephritis.: Continue antibiotics. 3. SEPTIC SHOCK: At present blood pressure improved although it is in the low 100s. Continue fluids and antibiotics. Note that the patient is improving and is coming out of septic shock. 4. ACUTE RENAL Failure: Seems to be having a slightly improved GFR. Nephrology on the case. 5. Renal stone: Patient states she passed the stone. Ultrasound of the kidney did not show any hydronephrosis or renal stone. There is a right renal cyst. 6. History of hypertension: At present blood pressure on the lower 100s. Once blood pressure comes up, then would restart the patient's antihypertensive. 7. Diabetes mellitus: Continue antidiabetic regimen. 8. MORBID OBESITY: Later would discuss with the patient about need to reduce weight. Also as an outpatient she may need a sleep study to make sure she does not have a obstructive sleep apnea. Medications reviewed. Discussed with the attending physician Dr. Buenrostro. Medications added. Medical decision making is of high complexity, in view of the atrial fibrillation with at times rapid ventricular response. And also patient has multiple medical problems. She has a prior history of cardiomyopathy, but the ejection fraction is said to be 70%. Will check if the patient had a echo recently. Otherwise would recommend getting it repeat echo. Note the patient is a full code. Her daughter is a surrogate healthcare decision maker. Note 40 minutes spent on this patient, with more than 50% of time spent in direct patient care. Will with Dr. Buenrostro discussed with the patient and patient's family about chronic anticoagulation therapy. Note that the patient's corrected Shankar Vasc2 score is 4 hence will benefit from chronic anticoagulation.
[2017-12-17] MEDS: DILTIAZEM HCL 30 MG TABLET PO SCH ×4 (00:38→17:20)
[2017-12-17] MEDS: PIPERACILLIN SODIUM/TAZOBACTAM 2.25 GM in NORMAL SALINE 50 ML IV SCH ×3 (01:03→17:20)
[2017-12-17 04:48] LABS: ABSOLUTE EOSINOPHILS # (AUTO) 0.3 10^3/uL (0.0-0.6); ABSOLUTE LYMPHOCYTES (AUTO) 1.4 10^3/uL (0.5-4.7); ABSOLUTE MONOCYTES (AUTO) 1.5 10^3/uL (0.1-1.4); ABSOLUTE NEUT (AUTO) 10.3 10^3/uL (1.7-8.2); BASOPHILS % (AUTO) 0.2 % (0-2); HEMATOCRIT 32.5 % (36.0-47.0); HEMOGLOBIN 10.8 g/dL (12.0-15.5); LYMPHOCYTES % (AUTO) 10.2 % (13-45); MEAN CORPUSCULAR HEMOGLOBIN 28.2 pg (27.0-33.4); MEAN CORPUSCULAR HGB CONC 33.2 g/dL (32.0-36.0); MEAN CORPUSCULAR VOLUME 85 fl (80-97); MONOCYTES % (AUTO) 10.9 % (3-13); PLATELET COUNT 228 10^3/uL (150-450); RED BLOOD COUNT 3.83 10^6/uL (3.72-5.28); RED CELL DISTRIBUTION WIDTH 14.9 % (11.5-14.0); SEGMENTED NEUTROPHILS % (AUTO) 76.7 % (42-78); TOTAL CELLS COUNTED % (AUTO) 100 %; WHITE BLOOD COUNT 13.4 10^3/uL (4.0-10.5)
[2017-12-17 05:14] LABS: ANION GAP 11 (5-19); BLOOD UREA NITROGEN 39 mg/dL (7-20); CALCIUM 7.4 mg/dL (8.4-10.2); CARBON DIOXIDE 21 mmol/L (22-30); CHLORIDE 106 mmol/L (98-107); GLUCOSE 126 mg/dL (75-110); POTASSIUM 3.8 mmol/L (3.6-5.0); SODIUM 138.3 mmol/L (137-145)
[2017-12-17] MEDS: HEPARIN SOD (PORCINE) 5,000 UNIT/ML 1 ML SYRINGE SUBCUT SCH (05:29)
[2017-12-17] MEDS: PINDOLOL 5 MG PO SCH ×2 (05:30→17:22)
--- NOTE | 2017-12-17 08:45 | PDOC PROGRESS REPORT ---
Subjective Progress Note for:: 12/17/17 Subjective:: Patient is currently doing well Patient still very weak Patient's denied any chest pain denied any shortness of the breath Since currently on A. fib and a heart rate still up-and-down Since seen by Dr. Echevarria Is also followed by the Dr. Khoury Reason For Visit: SEPSIS Physical Exam Vital Signs: Temp Pulse Resp BP Pulse Ox 97.8 F 101 H 20 120/72 93 12/17/17 07:24 12/17/17 07:54 12/17/17 07:54 12/17/17 07:24 12/17/17 07:54 Intake & Output 12/16/17 12/17/17 12/18/17 06:59 06:59 06:59 Intake Total 3696 3137 Output Total 1125 700 Balance 2571 2437 Weight 139.9 kg 140 kg General appearance: PRESENT: no acute distress, well-developed, well-nourished Head exam: PRESENT: atraumatic, normocephalic Eye exam: PRESENT: conjunctiva pink, EOMI, PERRLA. ABSENT: scleral icterus Ear exam: PRESENT: normal external ear exam Mouth exam: PRESENT: moist, tongue midline Neck exam: PRESENT: full ROM. ABSENT: carotid bruit, JVD, lymphadenopathy, thyromegaly Respiratory exam: PRESENT: clear to auscultation bharath Cardiovascular exam: PRESENT: RRR. ABSENT: diastolic murmur, rubs, systolic murmur Pulses: PRESENT: normal dorsalis pedis pul, +2 pedal pulses bilateral Vascular exam: PRESENT: normal capillary refill GI/Abdominal exam: PRESENT: normal bowel sounds, soft. ABSENT: distended, guarding, mass, organolmegaly, rebound, tenderness Rectal exam: PRESENT: deferred Extremities exam: ABSENT: pedal edema Neurological exam: PRESENT: alert, awake, oriented to person, oriented to place , oriented to time, oriented to situation, CN II-XII grossly intact. ABSENT: motor sensory deficit Psychiatric exam: PRESENT: appropriate affect, normal mood. ABSENT: homicidal ideation, suicidal ideation Skin exam: PRESENT: dry, intact, warm. ABSENT: cyanosis, rash Results Laboratory Results: 12/17/17 04:11 12/17/17 04:11 12/17/17 12/17/17 04:11 04:11 WBC 13.4 H RBC 3.83 Hgb 10.8 L Hct 32.5 L MCV 85 MCH 28.2 MCHC 33.2 RDW 14.9 H Plt Count 228 Seg Neutrophils % 76.7 Lymphocytes % 10.2 L Monocytes % 10.9 Eosinophils % 2.0 Basophils % 0.2 Absolute Neutrophils 10.3 H Absolute Lymphocytes 1.4 Absolute Monocytes 1.5 H Absolute Eosinophils 0.3 Absolute Basophils 0.0 Sodium 138.3 Potassium 3.8 Chloride 106 Carbon Dioxide 21 L Anion Gap 11 BUN 39 H Creatinine 1.63 H Est GFR ( Amer) 37 L Est GFR (Non-Af Amer) 31 L Glucose 126 H Calcium 7.4 L Impressions: Chest X-Ray 12/14/17 21:26 IMPRESSION: No acute disease. Head CT 12/14/17 21:26 IMPRESSION: No acute intracranial hemorrhage. Abdomen/Pelvis CT 12/14/17 22:17 IMPRESSION: Mild left renal collecting system fullness and left perinephric and periureteral stranding. This may be due to recently passed calculus. No other renal calculi are noted. Calculus in the bladder may be due to recently passed calculus. Renal Ultrasound 12/16/17 00:00 IMPRESSION: 1. The examination is limited due to the patient's body habitus. 2. No evidence of hydronephrosis. 3. Right renal cyst. Assessment & Plan - Diagnosis (1) Sepsis Qualifiers: Sepsis type: sepsis due to unspecified organism Qualified Code(s): A41.9 - Sepsis, unspecified organism Is this a current diagnosis for this admission?: Yes Plan: Gram-negative sepsis currently continues to IV Zosyn wait for culture and sensitivity Continues to IV fluid (2) Pyelonephritis Is this a current diagnosis for this admission?: Yes Plan: Continuous IV antibiotic (3) Hypertension Qualifiers: Hypertension type: essential hypertension Qualified Code(s): I10 - Essential (primary) hypertension Is this a current diagnosis for this admission?: Yes Plan: Currently all stable (4) Acute kidney injury Is this a current diagnosis for this admission?: Yes Plan: Currently all improving (5) Cardiomyopathy Qualifiers: Cardiomyopathy type: unspecified Qualified Code(s): I42.9 - Cardiomyopathy , unspecified Is this a current diagnosis for this admission?: Yes Plan: Patient was Cardizem drip due to the tachycardia currently off restart the patient's beta-vilma and p.o. Cardizem right now (6) Altered mental status Qualifiers: Altered mental status type: unspecified Qualified Code(s): R41.82 - Altered mental status, unspecified Is this a current diagnosis for this admission?: Yes Plan: Currently all resolved (7) UTI (urinary tract infection) Qualifiers: Urinary tract infection type: site unspecified Hematuria presence: with hematuria Qualified Code(s): N39.0 - Urinary tract infection, site not specified; R31.9 - Hematuria, unspecified; R31.9 - Hematuria, unspecified Is this a current diagnosis for this admission?: Yes Plan: Continuous IV antibiotic will wait for culture and sensitivity (8) Type 2 diabetes mellitus Qualifiers: Diabetes mellitus alf insulin use: without senior client advisor use Is this a current diagnosis for this admission?: Yes Plan: Will currently hold the metformin continues to sliding-scale (9) Atrial fibrillation Qualifiers: Atrial fibrillation type: unspecified Qualified Code(s): I48.91 - Unspecified atrial fibrillation Is this a current diagnosis for this admission?: Yes Plan: Increase the Cardizem 60 mg p.o. every 6 Patient is currently on a heparin subcu every 8 Consider start on Eliquis 5 mg p.o. 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
[2017-12-17] MEDS: FAMOTIDINE INJ/PF 20 MG/2 ML SDV IV SCH ×2 (09:12→21:14)
[2017-12-17] MEDS: NORMAL SALINE 1000 ML 1,000 ML IV PRN (09:13)
[2017-12-17] MEDS ORDERED: DILTIAZEM HCL 60 MG TABLET PO SCH (12:00)
[2017-12-17] MEDS: INSULIN LISPRO 100 UNIT/ML 3 ML VIAL SUBCUT PRN ×3 (12:10→21:35)
[2017-12-17] MEDS: APIXABAN 2.5 MG TABLET PO SCH (17:20)
--- NOTE | 2017-12-17 20:00 | Progress Note ---
Provider Note Provider Note: CARDIOLOGY PROGRESS NOTES by Dr. Lauryn Echevarria on 12/17/2017. SUBJECTIVE: The patient continues to be in atrial fibrillation, but denies any chest pain or discomfort there is no shortness of breath there is no PND orthopnea. She had leg edema is only trace now. There is no TIA or CVA symptoms. Note that the patient's blood pressure is better. In view of this she is tolerating the Cardizem which has been increased to 60 mg p.o. every 6 hours. There are no ventricular arrhythmias seen. PHYSICAL EXAMINATION: The patient is morbidly obese, but well-groomed in no acute distress. 12/17/17 15:04 Temperature 98.3 F Temperature Oral Source Pulse Rate 89 Respiratory 16 Rate Blood Pressure 118/69 BP Location Right Arm BP Position Supine O2 Sat by Pulse 98 Oximetry Oxygen Flow 2.00 Rate Oxygen Delivery Nasal Cannula Method HEAD: Head is atraumatic normocephalic. EYES: Pupils are equal round regular reactive to light accommodation, extraocular movements are normal. There is no conjunctival pallor. There is no scleral icterus. ENT: Is negative. SKIN: There is no skin rashes or skin lesions. There is no petechia or ecchymosis. NECK: Is supple there is no JVD, there is no lymphadenopathy. Carotids equal without any bruits. There is no goiter. There is no accessory muscles of respiration in use. LUNGS: Is clear to auscultation percussion, without any rhonchi rales or wheezing. There is no chest wall tenderness. HEART: S1-S2 is heard, S1 is of variable intensity. There is no S3 gallop or S4 gallop. There is systolic murmur left sternal border and apex. There is no rub. ABDOMEN: Soft, obese. Nontender. Bowel sounds well heard. There is no hepatosplenomegaly. There is no rebound guarding or rigidity. EXTREMITIES: Femorals are deep, femorals are diminished. There is no femoral bruits. Leg pulses are diminished. There is no pedal edema. There is no cyanosis or clubbing. There is no DVT or cellulitis. RESEARCH ANTHROPOLOGIST: The patient is conscious awake alert oriented x3 with no focal deficit. PSYCHIATRIC: Although the patient judgment and insight intact she is of slightly slow mentation. The patient does not appear to be agitated. She does not appear to be anxious. 12/16/17 12/16/17 12/17/17 04:43 15:37 04:11 WBC Hgb Hct Plt Count Sodium 137.0 138.3 Potassium 3.5 L 3.8 Chloride 105 106 Carbon Dioxide 20 L 21 L BUN 47 H 39 H Creatinine 2.27 H 1.63 H Est GFR ( Amer) 26 L 37 L Glucose 155 H 126 H Calcium 7.4 L 7.4 L C. difficile Tox (PCR) NEGATIVE 12/17/17 04:11 WBC 13.4 H Hgb 10.8 L Hct 32.5 L Plt Count 228 Sodium Potassium Chloride Carbon Dioxide BUN Creatinine Est GFR ( Amer) Glucose Calcium C. difficile Tox (PCR) 12/15/17 04:02 Urine Culture - Final Catheterized Urine Escherichia Coli 12/14/17 22:40 Blood Culture - Final Blood Escherichia Coli 12/14/17 21:27 Blood Culture - Final Blood Escherichia Coli MONITOR STRIPS: Shows that the patient's atrial fibrillation with ventricular response around 106-110 bpm. IMPRESSION/RECOMMENDATION: 1. Atrial flutter/fibrillation. At present patient atrial fibrillation with somewhat fast ventricular response. Continue the patient on Cardizem p.o and I agree with increasing dose of Cardizem to 60 mg p.o. every 6 hours. Later would recommend converting it to a long-acting Cardizem orally. No Dr. Buenrostro as discussed with the patient's family and the patient and the patient has been started on Eliquis 2.5 mg p.o. twice daily for chronic anticoagulation therapy.. 2. ACUTE pyelonephritis.: Continue antibiotics. 3. SEPTIC SHOCK: At present blood pressure improved although it is in the low 100s. Patient has E. coli positive blood culture and urine cultures. Continue fluids and antibiotics. Note that the patient is improving and is coming out of septic shock. 4. ACUTE RENAL Failure: Seems to be having an improved GFR, which is gone up to 37 mL/min. Nephrology on the case. 5. Renal stone: Patient states she passed the stone. Ultrasound of the kidney did not show any hydronephrosis or renal stone. There is a right renal cyst. 6. History of hypertension: At present blood pressure is much improved allowing for increasing dose of Cardizem. 7. Diabetes mellitus: Continue antidiabetic regimen. 8. MORBID OBESITY: Later would discuss with the patient about need to reduce weight. Also as an outpatient she may need a sleep study to make sure she does not have a obstructive sleep apnea. Note medications have been reviewed, and as per discussions with Dr. Buenrostro, the patient's Cardizem is been increased and also patient started on Eliquis for chronic anticoagulation therapy. Medical decision making is still of moderate to high complexity. The patient is making slow improvement. Suspect that the patient's renal function would normalize be much improved with the current treatment. Note medical decision making is of moderate to high complexity. 40 minutes spent on this patient more than 50% of time spent in direct patient care. We will follow with you
[2017-12-17 22:09] LABS: VANCOMYCIN,TROUGH < 5.0 ug/mL (5.0-20.0)
[2017-12-18] MEDS: DILTIAZEM HCL 30 MG TABLET PO SCH ×2 (00:07→05:38)
[2017-12-18] MEDS: PIPERACILLIN SODIUM/TAZOBACTAM 2.25 GM in NORMAL SALINE 50 ML IV SCH (01:12)
[2017-12-18 04:47] LABS: HEMATOCRIT 31.8 % (36.0-47.0); HEMOGLOBIN 10.4 g/dL (12.0-15.5); MEAN CORPUSCULAR HEMOGLOBIN 28.2 pg (27.0-33.4); MEAN CORPUSCULAR HGB CONC 32.8 g/dL (32.0-36.0); MEAN CORPUSCULAR VOLUME 86 fl (80-97); PLATELET COUNT 276 10^3/uL (150-450); RED BLOOD COUNT 3.69 10^6/uL (3.72-5.28); RED CELL DISTRIBUTION WIDTH 15.1 % (11.5-14.0)
[2017-12-18 04:58] LABS: ANION GAP 10 (5-19); BLOOD UREA NITROGEN 30 mg/dL (7-20); CALCIUM 7.6 mg/dL (8.4-10.2); CARBON DIOXIDE 23 mmol/L (22-30); CHLORIDE 105 mmol/L (98-107); GLUCOSE 161 mg/dL (75-110); POTASSIUM 3.6 mmol/L (3.6-5.0); SODIUM 137.6 mmol/L (137-145)
[2017-12-18 05:01] LABS: ABSOLUTE LYMPHOCYTES# (MANUAL) 2.2 10^3/uL (0.5-4.7); ABSOLUTE MONOCYTES # (MANUAL) 1.3 10^3/uL (0.1-1.4); ABSOLUTE NEUTROPHILS# (MANUAL) 12.3 10^3/uL (1.7-8.2); ANISOCYTOSIS SLIGHT; BAND NEUTROPHILS % (MANUAL) 1 % (3-5); BASOPHILS % (MANUAL) 0 % (0-2); EOSINOPHILS % (MANUAL) 1 % (0-6); LYMPHOCYTES % (MANUAL) 14 % (13-45); MONOCYTES % (MANUAL) 8 % (3-13); PLATELET CLUMPS PRESENT; PLATELET COMMENT ADEQUATE; PLATELET GIANT PRESENT; PLATELET LARGE PRESENT; SEGMENTED NEUTROPHILS % (MAN) 76 % (42-78); TOTAL CELLS COUNTED 100
[2017-12-18] MEDS: PINDOLOL 5 MG PO SCH ×2 (05:38→17:09)
[2017-12-18] MEDS ORDERED: ONDANSETRON HCL INJ/PF 4 MG/2 ML SDV IV PRN (07:30)
[2017-12-18] MEDS: INSULIN LISPRO 100 UNIT/ML 3 ML VIAL SUBCUT PRN ×4 (08:42→22:05)
[2017-12-18] MEDS: NORMAL SALINE 1000 ML 1,000 ML IV PRN (08:42)
--- NOTE | 2017-12-18 08:49 | PDOC PROGRESS REPORT ---
Subjective Progress Note for:: 12/18/17 Subjective:: Patient is currently doing well Patient's denied any chest pain denied any shortness of the Breath Denied any abdominal pain Patient able to walk yesterday to the bathroom Reason For Visit: SEPSIS Physical Exam Vital Signs: Temp Pulse Resp BP Pulse Ox 98.3 F 63 21 H 140/75 H 97 12/18/17 07:23 12/18/17 07:23 12/18/17 07:23 12/18/17 07:23 12/18/17 07:23 Intake & Output 12/17/17 12/18/17 12/19/17 06:59 06:59 06:59 Intake Total 3137 1230 Output Total 700 1675 Balance 2437 -445 Weight 140 kg 141.6 kg General appearance: PRESENT: no acute distress, well-developed, well-nourished Head exam: PRESENT: atraumatic, normocephalic Eye exam: PRESENT: conjunctiva pink, EOMI, PERRLA. ABSENT: scleral icterus Ear exam: PRESENT: normal external ear exam Mouth exam: PRESENT: moist, tongue midline Neck exam: PRESENT: full ROM. ABSENT: carotid bruit, JVD, lymphadenopathy, thyromegaly Respiratory exam: PRESENT: clear to auscultation bharath Cardiovascular exam: PRESENT: RRR. ABSENT: diastolic murmur, rubs, systolic murmur Pulses: PRESENT: normal dorsalis pedis pul, +2 pedal pulses bilateral Vascular exam: PRESENT: normal capillary refill GI/Abdominal exam: PRESENT: normal bowel sounds, soft. ABSENT: distended, guarding, mass, organolmegaly, rebound, tenderness Rectal exam: PRESENT: deferred Extremities exam: ABSENT: pedal edema Musculoskeletal exam: PRESENT: ambulatory Neurological exam: PRESENT: alert, awake, oriented to person, oriented to place , oriented to time, oriented to situation, CN II-XII grossly intact. ABSENT: motor sensory deficit Psychiatric exam: PRESENT: appropriate affect, normal mood. ABSENT: homicidal ideation, suicidal ideation Skin exam: PRESENT: dry, intact, warm. ABSENT: cyanosis, rash Results Laboratory Results: 12/18/17 03:38 12/18/17 03:38 12/18/17 12/18/17 03:38 03:38 WBC 16.0 H RBC 3.69 L Hgb 10.4 L Hct 31.8 L MCV 86 MCH 28.2 MCHC 32.8 RDW 15.1 H Plt Count 276 Seg Neutrophils % Not Reportable Lymphocytes % Not Reportable Monocytes % Not Reportable Eosinophils % Not Reportable Basophils % Not Reportable Absolute Neutrophils Not Reportable Absolute Lymphocytes Not Reportable Absolute Monocytes Not Reportable Absolute Eosinophils Not Reportable Absolute Basophils Not Reportable Sodium 137.6 Potassium 3.6 Chloride 105 Carbon Dioxide 23 Anion Gap 10 BUN 30 H Creatinine 1.40 H Est GFR ( Amer) 45 L Est GFR (Non-Af Amer) 37 L Glucose 161 H Calcium 7.6 L 12/15/17 04:02 Catheterized Urine Urine Culture - Final Escherichia Coli Impressions: Chest X-Ray 12/14/17 21:26 IMPRESSION: No acute disease. Head CT 12/14/17 21:26 IMPRESSION: No acute intracranial hemorrhage. Abdomen/Pelvis CT 12/14/17 22:17 IMPRESSION: Mild left renal collecting system fullness and left perinephric and periureteral stranding. This may be due to recently passed calculus. No other renal calculi are noted. Calculus in the bladder may be due to recently passed calculus. Renal Ultrasound 12/16/17 00:00 IMPRESSION: 1. The examination is limited due to the patient's body habitus. 2. No evidence of hydronephrosis. 3. Right renal cyst. Assessment & Plan - Diagnosis (1) Sepsis Qualifiers: Sepsis type: sepsis due to unspecified organism Qualified Code(s): A41.9 - Sepsis, unspecified organism Is this a current diagnosis for this admission?: Yes Plan: Will change the dressings to the cefepime with elevated white count and THERESA is better Consider p.o. Augmentin on the discharge (2) Pyelonephritis Is this a current diagnosis for this admission?: Yes Plan: Continues to IV antibiotic (3) Hypertension Qualifiers: Hypertension type: essential hypertension Qualified Code(s): I10 - Essential (primary) hypertension Is this a current diagnosis for this admission?: Yes Plan: Currently all stable (4) Acute kidney injury Is this a current diagnosis for this admission?: Yes Plan: Currently all improving (5) Cardiomyopathy Qualifiers: Cardiomyopathy type: unspecified Qualified Code(s): I42.9 - Cardiomyopathy , unspecified Is this a current diagnosis for this admission?: Yes Plan: Patient was Cardizem drip due to the tachycardia currently off restart the patient's beta-vilma and p.o. Cardizem right now (6) Altered mental status Qualifiers: Altered mental status type: unspecified Qualified Code(s): R41.82 - Altered mental status, unspecified Is this a current diagnosis for this admission?: Yes Plan: Currently all resolved (7) UTI (urinary tract infection) Qualifiers: Urinary tract infection type: site unspecified Hematuria presence: with hematuria Qualified Code(s): N39.0 - Urinary tract infection, site not specified; R31.9 - Hematuria, unspecified; R31.9 - Hematuria, unspecified Is this a current diagnosis for this admission?: Yes Plan: Continues to IV antibiotic (8) Type 2 diabetes mellitus Qualifiers: Diabetes mellitus 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 every 6 Patient is currently on a heparin subcu every 8 Consider start on Eliquis 5 mg p.o. twice a day Once the kidney functions get better Discussed with the patient about the Eliquis and the potential side effect Will wait for the cardiologyFurther evaluations - Time Time Spent with patient: 15-24 minutes Medications reviewed and adjusted accordingly: Yes Anticipated discharge: Acute Rehab Within: Other - Inpatient Certification Medical Necessity: Need Close Monitoring Due to Risk of Patient Decompensation, Need for IV Antibiotics Post Hospital Care: D/C Administrative Court Justice Documentation - Plan Summary Plan Summary: Will consider the digital sales planner for the rehab DC the [place]man catheter change to IV antibiotic check the stool for the C. difficile
[2017-12-18] MEDS: CEFEPIME 2 GM/D5W RTU 2 GM/50 ML RTUPB IV SCH ×2 (09:54→21:25)
[2017-12-18] MEDS: FAMOTIDINE 20 MG TABLET PO SCH ×2 (09:54→21:25)
[2017-12-18] MEDS: APIXABAN 2.5 MG TABLET PO SCH ×2 (09:54→17:10)
[2017-12-18] MEDS: DILTIAZEM HCL 60 MG TABLET PO SCH ×2 (11:13→17:10)
--- NOTE | 2017-12-18 20:19 | Progress Note ---
Provider Note Provider Note: CARDIOLOGY PROGRESS NOTE by Dr. Lauryn Echevarria for 12/18/2017. SUBJECTIVE: The patient states she was able to get out of bed by herself and sit in a chair. She was also able to get back into the bed. She denies any chest pain or discomfort. There is no PND orthopnea. She has only trace leg edema. She continues to be in atrial fibrillation, but with a controlled ventricular response there is no ventricular arrhythmias seen. The patient's renal function have been much improved. With a GFR now reaching up to 45 mL/min , blood pressure is also much improved. There is no bleeding on Eliquis. There is no TIA or CVA symptoms. There is good dizziness or syncope or near syncope. PHYSICAL EXAMINATION: The patient is morbidly obese, but well-groomed. She is in no acute distress. 12/18/17 11:04 Temperature 97.4 F Temperature Oral Source Pulse Rate 74 Respiratory 22 H Rate Blood Pressure 121/68 Blood Pressure 85 Mean BP Location Right Arm BP Position Sitting O2 Sat by Pulse 99 Oximetry Oxygen Flow 2.00 Rate Oxygen Delivery Nasal Cannula Method HEAD: Head is atraumatic normocephalic. EYES: Pupils are equal round regular reactive to light accommodation, extraocular movements are normal. There is no conjunctival pallor. There is no scleral icterus. ENT: Is negative. SKIN: There is no skin rashes or skin lesions. There is no petechia or ecchymosis. NECK: Is supple there is no JVD, there is no lymphadenopathy. Carotids equal without any bruits. There is no goiter. There is no accessory muscles of respiration in use. LUNGS: Is clear to auscultation percussion, without any rhonchi rales or wheezing. There is no chest wall tenderness. HEART: S1-S2 is heard, S1 is of variable intensity. There is no S3 gallop or S4 gallop. There is systolic murmur left sternal border and apex. There is no rub. ABDOMEN: Soft, obese. Nontender. Bowel sounds well heard. There is no hepatosplenomegaly. There is no rebound guarding or rigidity. EXTREMITIES: Femorals are deep, femorals are diminished. There is no femoral bruits. Leg pulses are diminished. There is no pedal edema. There is no cyanosis or clubbing. There is no DVT or cellulitis. OFFICE EQUIPMENT MECHANIC: The patient is conscious awake alert oriented x3 with no focal deficit. PSYCHIATRIC: Although the patient judgment and insight intact she is of slightly slow mentation. The patient does not appear to be agitated. She does not appear to be anxious. 12/18/17 12/18/17 03:38 03:38 WBC 16.0 H Hgb 10.4 L Hct 31.8 L Plt Count 276 Sodium 137.6 Potassium 3.6 Chloride 105 Carbon Dioxide 23 BUN 30 H Creatinine 1.40 H Est GFR ( Amer) 45 L Glucose 161 H Calcium 7.6 L MONITOR STRIPS: Shows that the patient's atrial fibrillation with a controlled ventricular response. IMPRESSION/RECOMMENDATION: 1. Atrial flutter/fibrillation. At present patient in atrial fibrillation with controlled ventricular response. Continue the patient on Cardizem p.o and I agree with increasing dose of Cardizem to 60 mg p.o. every 6 hours. Continue Eliquis 2.5 mg p.o. twice daily for chronic anticoagulation therapy.. Will see if we can increase the Cardizem to 90 mg p.o. every 6 hours. Atrial fibrillation appears to be persistent. 2. ACUTE pyelonephritis.: Continue antibiotics. 3. SEPTIC SHOCK: At present blood pressure is much improved . Patient has E. coli positive blood culture and urine cultures. Continue fluids and antibiotics. Note that the patient is improving and is no longer in septic shock. 4. ACUTE RENAL Failure: Seems to be having an improved GFR, which is gone up to 45 mL/min. Nephrology on the case. 5. Renal stone: Patient states she passed the stone. Ultrasound of the kidney did not show any hydronephrosis or renal stone. There is a right renal cyst. 6. History of hypertension: At present blood pressure is much improved allowing for increasing dose of Cardizem. 7. Diabetes mellitus: Continue antidiabetic regimen. 8. MORBID OBESITY: Later would discuss with the patient about need to reduce weight. Also as an outpatient she may need a sleep study to make sure she does not have a obstructive sleep apnea. Medications reviewed, and adjusted. Medical decision making is of moderate complexity at present. Note 40 minutes spent on this patient more than 50% of time spent in direct patient care. We will follow with the.
[2017-12-19] MEDS: DILTIAZEM HCL 60 MG TABLET PO SCH ×3 (05:06→17:24)
[2017-12-19] MEDS: PINDOLOL 5 MG PO SCH ×2 (05:07→17:24)
[2017-12-19 05:53] LABS: ABSOLUTE EOSINOPHILS # (AUTO) 0.4 10^3/uL (0.0-0.6); ABSOLUTE LYMPHOCYTES (AUTO) 2.2 10^3/uL (0.5-4.7); ABSOLUTE MONOCYTES (AUTO) 1.3 10^3/uL (0.1-1.4); ABSOLUTE NEUT (AUTO) 12.4 10^3/uL (1.7-8.2); BASOPHILS % (AUTO) 0.3 % (0-2); EOSINOPHILS % (AUTO) 2.3 % (0-6); HEMATOCRIT 29.7 % (36.0-47.0); HEMOGLOBIN 9.6 g/dL (12.0-15.5); LYMPHOCYTES % (AUTO) 13.6 % (13-45); MEAN CORPUSCULAR HEMOGLOBIN 27.8 pg (27.0-33.4); MEAN CORPUSCULAR HGB CONC 32.3 g/dL (32.0-36.0); MEAN CORPUSCULAR VOLUME 86 fl (80-97); PLATELET COUNT 293 10^3/uL (150-450); RED BLOOD COUNT 3.44 10^6/uL (3.72-5.28); RED CELL DISTRIBUTION WIDTH 15.1 % (11.5-14.0); SEGMENTED NEUTROPHILS % (AUTO) 75.8 % (42-78); TOTAL CELLS COUNTED % (AUTO) 100 %; WHITE BLOOD COUNT 16.4 10^3/uL (4.0-10.5)
[2017-12-19 06:11] LABS: ANION GAP 8 (5-19); BLOOD UREA NITROGEN 24 mg/dL (7-20); CALCIUM 7.9 mg/dL (8.4-10.2); CARBON DIOXIDE 24 mmol/L (22-30); CHLORIDE 105 mmol/L (98-107); GLUCOSE 131 mg/dL (75-110); POTASSIUM 3.8 mmol/L (3.6-5.0); SODIUM 136.7 mmol/L (137-145)
[2017-12-19] MEDS: FAMOTIDINE 20 MG TABLET PO SCH ×2 (10:24→21:44)
[2017-12-19] MEDS: ACETAMINOPHEN 325 MG TABLET PO PRN (10:24)
[2017-12-19] MEDS: APIXABAN 2.5 MG TABLET PO SCH ×2 (10:24→17:24)
[2017-12-19] MEDS: CEFEPIME 2 GM/D5W RTU 2 GM/50 ML RTUPB IV SCH ×2 (10:24→21:43)
[2017-12-19] MEDS: INSULIN LISPRO 100 UNIT/ML 3 ML VIAL SUBCUT PRN ×3 (12:20→21:44)
--- NOTE | 2017-12-19 12:46 | PDOC PROGRESS REPORT ---
Subjective Progress Note for:: 12/19/17 Subjective:: Patient is currently doing well pt white count is still elevated Patient is afebrile Patient currently denied any chest pain denied any shortness of the breath Still feeling weak Subsequent blood culture urine cultures all negative Reason For Visit: SEPSIS Physical Exam Vital Signs: Temp Pulse Resp BP Pulse Ox 97.6 F 70 20 105/60 91 L 12/19/17 07:47 12/19/17 07:47 12/19/17 07:47 12/19/17 07:47 12/19/17 07:47 Intake & Output 12/18/17 12/19/17 12/20/17 06:59 06:59 06:59 Intake Total 2230 1066 50 Output Total 1675 800 Balance 555 266 50 Weight 141.6 kg 142.2 kg General appearance: PRESENT: no acute distress, well-developed, well-nourished Head exam: PRESENT: atraumatic, normocephalic Eye exam: PRESENT: conjunctiva pink, EOMI, PERRLA. ABSENT: scleral icterus Ear exam: PRESENT: normal external ear exam Mouth exam: PRESENT: moist, tongue midline Neck exam: PRESENT: full ROM. ABSENT: carotid bruit, JVD, lymphadenopathy, thyromegaly Respiratory exam: PRESENT: clear to auscultation bharath Cardiovascular exam: PRESENT: RRR. ABSENT: diastolic murmur, rubs, systolic murmur Pulses: PRESENT: normal dorsalis pedis pul, +2 pedal pulses bilateral Vascular exam: PRESENT: normal capillary refill GI/Abdominal exam: PRESENT: normal bowel sounds, soft. ABSENT: distended, guarding, mass, organolmegaly, rebound, tenderness Rectal exam: PRESENT: deferred Extremities exam: ABSENT: pedal edema Musculoskeletal exam: PRESENT: ambulatory Neurological exam: PRESENT: alert, awake, oriented to person, oriented to place , oriented to time, oriented to situation, CN II-XII grossly intact. ABSENT: motor sensory deficit Psychiatric exam: PRESENT: appropriate affect, normal mood. ABSENT: homicidal ideation, suicidal ideation Skin exam: PRESENT: dry, intact, warm. ABSENT: cyanosis, rash Results Laboratory Results: 12/19/17 05:08 12/19/17 05:08 12/19/17 12/19/17 05:08 05:08 WBC 16.4 H RBC 3.44 L Hgb 9.6 L Hct 29.7 L MCV 86 MCH 27.8 MCHC 32.3 RDW 15.1 H Plt Count 293 Seg Neutrophils % 75.8 Lymphocytes % 13.6 Monocytes % 8.0 Eosinophils % 2.3 Basophils % 0.3 Absolute Neutrophils 12.4 H Absolute Lymphocytes 2.2 Absolute Monocytes 1.3 Absolute Eosinophils 0.4 Absolute Basophils 0.0 Sodium 136.7 L Potassium 3.8 Chloride 105 Carbon Dioxide 24 Anion Gap 8 BUN 24 H Creatinine 1.17 Est GFR ( Amer) 55 L Est GFR (Non-Af Amer) 45 L Glucose 131 H Calcium 7.9 L Impressions: Chest X-Ray 12/14/17 21:26 IMPRESSION: No acute disease. Head CT 12/14/17 21:26 IMPRESSION: No acute intracranial hemorrhage. Abdomen/Pelvis CT 12/14/17 22:17 IMPRESSION: Mild left renal collecting system fullness and left perinephric and periureteral stranding. This may be due to recently passed calculus. No other renal calculi are noted. Calculus in the bladder may be due to recently passed calculus. Renal Ultrasound 12/16/17 00:00 IMPRESSION: 1. The examination is limited due to the patient's body habitus. 2. No evidence of hydronephrosis. 3. Right renal cyst. Assessment & Plan - Diagnosis (1) Sepsis Qualifiers: Sepsis type: sepsis due to unspecified organism Qualified Code(s): A41.9 - Sepsis, unspecified organism Is this a current diagnosis for this admission?: Yes Plan: Currently all resolving Consider to switch to the p.o. Augmentin (2) Pyelonephritis Is this a current diagnosis for this admission?: Yes Plan: Continues to IV antibiotic (3) Hypertension Qualifiers: Hypertension type: essential hypertension Qualified Code(s): I10 - Essential (primary) hypertension Is this a current diagnosis for this admission?: Yes Plan: Currently all stable (4) Acute kidney injury Is this a current diagnosis for this admission?: Yes Plan: Currently all improving (5) Cardiomyopathy Qualifiers: Cardiomyopathy type: unspecified Qualified Code(s): I42.9 - Cardiomyopathy , unspecified Is this a current diagnosis for this admission?: Yes Plan: Patient was Cardizem drip due to the tachycardia currently off restart the patient's beta-vilma and p.o. Cardizem right now (6) Altered mental status Qualifiers: Altered mental status type: unspecified Qualified Code(s): R41.82 - Altered mental status, unspecified Is this a current diagnosis for this admission?: Yes Plan: Currently all resolved (7) UTI (urinary tract infection) Qualifiers: Urinary tract infection type: site unspecified Hematuria presence: with hematuria Qualified Code(s): N39.0 - Urinary tract infection, site not specified; R31.9 - Hematuria, unspecified; R31.9 - Hematuria, unspecified Is this a current diagnosis for this admission?: Yes Plan: Continues to IV antibiotic (8) Type 2 diabetes mellitus Qualifiers: Diabetes mellitus 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 every 6 Patient is currently on a heparin subcu every 8 Consider start on Eliquis 5 mg p.o. twice a day Once the kidney functions get better Discussed with the patient about the Eliquis and the potential side effect Will wait for the cardiologyFurther evaluations - Time Time Spent with patient: 15-24 minutes Medications reviewed and adjusted accordingly: Yes Anticipated discharge: Home Within: Other - Inpatient Certification Based on my medical assessment, after consideration of the patient's comorbidities, presenting symptoms, or acuity I expect that the services needed warrant INPATIENT care.: Yes I certify that my determination is in accordance with my understanding of Medicare's requirements for reasonable and necessary INPATIENT services [42 CFR 412.3e].: Yes Medical Necessity: Need for IV Antibiotics Post Hospital Care: D/C Foam Rubber Molder Documentation - Plan Summary Plan Summary: Patient is currently doing well if remains afebrile next 24 hours switch to the p.o. Augmentin Continues to physical therapy Consider discharge on a Friday if he remains stable at home versus rehab
--- NOTE | 2017-12-19 21:02 | EKG REPORT ---
SEVERITY:- BORDERLINE ECG - SINUS RHYTHM BORDERLINE T WAVE ABNORMALITIES : Confirmed by: Lauryn Echevarria MD 19-Dec-2017 21:01:49
--- NOTE | 2017-12-19 21:30 | Progress Note ---
Provider Note Provider Note: CARDIOLOGY PROGRESS NOTE by Dr. Lauryn Echevarria on 12/19/2017. SUBJECTIVE: The patient states her activity is improved. She is able to walk around the room without any problems. She is able to go to the bathroom by herself. She denies any chest pain or discomfort there is no PND orthopnea. There is only trace leg edema. Note that the patient is converted to sinus rhythm. Also the patient is afebrile, and with no urinary tract symptoms. She is having good urine output. Her GFR is increased to 55 mL/min. Hence will need to increase the patient's Eliquis to 5 mg p.o. twice daily. There is no PND orthopnea. The patient denies any palpitations. There is no TIA or CVA symptoms. There is no bleeding on Eliquis. The patient denies any palpitations or shortness of breath. PHYSICAL EXAMINATION: The patient is morbidly obese, but well-groomed. She is in no acute distress. Selected Entries 12/19/17 11:11 Temperature 98.1 F Temperature Oral Source Pulse Rate 76 Respiratory 20 Rate Blood Pressure 121/49 L Blood Pressure 73 Mean BP Location Right Wrist BP Position Supine O2 Sat by Pulse 97 Oximetry Oxygen Delivery Room Air Method HEAD: Head is atraumatic normocephalic. EYES: Pupils are equal round regular reactive to light accommodation, extraocular movements are normal. There is no conjunctival pallor. There is no scleral icterus. ENT: Is negative. SKIN: There is no skin rashes or skin lesions. There is no petechia or ecchymosis. NECK: Is supple there is no JVD, there is no lymphadenopathy. Carotids equal without any bruits. There is no goiter. There is no accessory muscles of respiration in use. LUNGS: Is clear to auscultation percussion, without any rhonchi rales or wheezing. There is no chest wall tenderness. HEART: S1-S2 is heard, S1 is of variable intensity. There is no S3 gallop or S4 gallop. There is systolic murmur left sternal border and apex. There is no rub. ABDOMEN: Soft, obese. Nontender. Bowel sounds well heard. There is no hepatosplenomegaly. There is no rebound guarding or rigidity. EXTREMITIES: Femorals are deep, femorals are diminished. There is no femoral bruits. Leg pulses are diminished. There is no pedal edema. There is no cyanosis or clubbing. There is no DVT or cellulitis. 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 PSYCHIATRIC: Although the patient judgment and insight intact she is of slightly slow mentation. The patient does not appear to be agitated. She does not appear to be anxious 12/19/17 12/19/17 05:08 05:08 WBC 16.4 H Hgb 9.6 L Hct 29.7 L Plt Count 293 Sodium 136.7 L Potassium 3.8 Chloride 105 Carbon Dioxide 24 BUN 24 H Creatinine 1.17 Est GFR ( Amer) 55 L Glucose 131 H Calcium 7.9 L EKG: Shows sinus rhythm. Borderline T abnormalities diffusely. Patient subsequent blood and urine cultures are all negative. IMPRESSION/RECOMMENDATION: 1. Atrial flutter/fibrillation. Patient now converted to sinus rhythm. We will increase the patient's Eliquis to 5 mill grams p.o. twice daily. We will adjust the patient's beta-vilma and Cardizem to long-acting preparations. This is been discussed with attending physician. 2. ACUTE pyelonephritis.: This is resolved. Continue antibiotics. 3. SEPTIC SHOCK: At present blood pressure is much improved . Patient has E. coli positive blood culture and urine cultures. Continue fluids and antibiotics. Note that the patient is improving and is no longer in septic shock. Note that subsequent blood and urine cultures are all negative for growth. 4. ACUTE RENAL Failure: Seems to be having an improved GFR, which is gone up to 55 mL/min. Nephrology on the case. 5. Renal stone: Patient states she passed the stone. Ultrasound of the kidney did not show any hydronephrosis or renal stone. There is a right renal cyst. Suspect renal function will return to normal. 6. History of hypertension: At present blood pressure is much improved allowing for increasing dose of Cardizem. 7. Diabetes mellitus: Continue antidiabetic regimen. 8. MORBID OBESITY: Later would discuss with the patient about need to reduce weight. Also as an outpatient she may need a sleep study to make sure she does not have a obstructive sleep apnea. Patient's medications have been reviewed and medications adjusted. Note 40 minutes spent on this patient more than 50% of time spent in direct patient care. EKG has been discussed with the patient. Medical decision making is now of moderate complexity. Will follow with you. Be discharged on Friday.
[2017-12-19] MEDS: DILTIAZEM HCL 180 MG CAPSULE.CR PO SCH (22:46)
[2017-12-20 05:22] LABS: ANION GAP 7 (5-19); BLOOD UREA NITROGEN 22 mg/dL (7-20); CALCIUM 8.2 mg/dL (8.4-10.2); CARBON DIOXIDE 23 mmol/L (22-30); CHLORIDE 107 mmol/L (98-107); GLUCOSE 133 mg/dL (75-110); SODIUM 136.5 mmol/L (137-145)
[2017-12-20] MEDS: PINDOLOL 5 MG PO SCH ×2 (05:46→17:02)
[2017-12-20] MEDS: DILTIAZEM HCL 180 MG CAPSULE.CR PO SCH ×2 (09:41→21:20)
[2017-12-20] MEDS: CEFEPIME 2 GM/D5W RTU 2 GM/50 ML RTUPB IV SCH ×2 (09:41→21:19)
[2017-12-20] MEDS: APIXABAN 5 MG TABLET PO SCH ×2 (09:41→17:03)
[2017-12-20] MEDS: FAMOTIDINE 20 MG TABLET PO SCH ×2 (09:41→21:20)
[2017-12-20] MEDS ORDERED: APIXABAN 2.5 MG TABLET PO SCH (10:00)
[2017-12-20] MEDS: INSULIN LISPRO 100 UNIT/ML 3 ML VIAL SUBCUT PRN ×3 (13:27→21:20)
--- NOTE | 2017-12-20 17:51 | PDOC PROGRESS REPORT ---
Subjective Progress Note for:: 12/20/17 Subjective:: No fever, chills, nausea, vomiting or abdominal pain. No chest pain or difficulty with breathing. Reason For Visit: SEPSIS Physical Exam Vital Signs: Temp Pulse Resp BP Pulse Ox 97.6 F 74 24 H 113/64 96 12/20/17 07:30 12/20/17 14:00 12/20/17 07:30 12/20/17 07:30 12/20/17 07:30 Intake & Output 12/19/17 12/20/17 12/21/17 06:59 06:59 06:59 Intake Total 1066 1617 404 Output Total 800 Balance 266 1617 404 Weight 142.2 kg 142.9 kg General appearance: PRESENT: no acute distress, morbidly obese Head exam: PRESENT: atraumatic, normocephalic Eye exam: PRESENT: conjunctiva pink, EOMI, PERRLA. ABSENT: scleral icterus Ear exam: PRESENT: normal external ear exam Mouth exam: PRESENT: moist Respiratory exam: PRESENT: clear to auscultation bharath Cardiovascular exam: PRESENT: RRR. ABSENT: diastolic murmur, rubs, systolic murmur Vascular exam: ABSENT: pallor GI/Abdominal exam: PRESENT: normal bowel sounds, soft. ABSENT: distended, guarding, mass, organolmegaly, rebound, tenderness Extremities exam: ABSENT: pedal edema Neurological exam: PRESENT: alert, awake, oriented to person, oriented to place , oriented to time, oriented to situation, CN II-XII grossly intact. ABSENT: motor sensory deficit Psychiatric exam: PRESENT: appropriate affect, normal mood. ABSENT: homicidal ideation, suicidal ideation Skin exam: PRESENT: dry, intact, warm. ABSENT: cyanosis, rash Results Laboratory Results: 12/19/17 05:08 12/20/17 04:16 12/20/17 04:16 Sodium 136.5 L Potassium 4.0 Chloride 107 Carbon Dioxide 23 Anion Gap 7 BUN 22 H Creatinine 0.99 Est GFR ( Amer) > 60 Est GFR (Non-Af Amer) 55 L Glucose 133 H Calcium 8.2 L 12/18/17 10:00 Catheterized Urine Urine Culture - Final NO GROWTH 2 DAYS Impressions: Chest X-Ray 12/14/17 21:26 IMPRESSION: No acute disease. Head CT 12/14/17 21:26 IMPRESSION: No acute intracranial hemorrhage. Abdomen/Pelvis CT 12/14/17 22:17 IMPRESSION: Mild left renal collecting system fullness and left perinephric and periureteral stranding. This may be due to recently passed calculus. No other renal calculi are noted. Calculus in the bladder may be due to recently passed calculus. Renal Ultrasound 12/16/17 00:00 IMPRESSION: 1. The examination is limited due to the patient's body habitus. 2. No evidence of hydronephrosis. 3. Right renal cyst. Assessment & Plan - Diagnosis (1) E. coli sepsis Is this a current diagnosis for this admission?: Yes Plan: Continue IV Cefepime coverage. Obtain CBC with diff in AM. (2) Hypertension Qualifiers: Hypertension type: essential hypertension Qualified Code(s): I10 - Essential (primary) hypertension Is this a current diagnosis for this admission?: Yes Plan: Continue current medication management. (3) Type 2 diabetes mellitus Qualifiers: Diabetes mellitus group home insulin use: without terminal gauger use Is this a current diagnosis for this admission?: Yes Plan: Maintain on current medication management. (4) Chronic atrial fibrillation Is this a current diagnosis for this admission?: Yes Plan: Continue current medication management. - Time Time Spent with patient: 25-34 minutes Medications reviewed and adjusted accordingly: Yes Anticipated discharge: Home with Homehealth Within: Other - Inpatient Certification Based on my medical assessment, after consideration of the patient's comorbidities, presenting symptoms, or acuity I expect that the services needed warrant INPATIENT care.: Yes I certify that my determination is in accordance with my understanding of Medicare's requirements for reasonable and necessary INPATIENT services [42 CFR 412.3e].: Yes Medical Necessity: Need Close Monitoring Due to Risk of Patient Decompensation, Need For Continuous Telemetry Monitoring, Need for IV Antibiotics, Risk of Complication if Not Cared For in Hospital Post Hospital Care: D/C [employer] Documentation - Plan Summary Plan Summary: Continue current medication management. Obtain CBC with diff.
--- NOTE | 2017-12-20 21:51 | Progress Note ---
Provider Note Provider Note: CARDIOLOGY PROGRESS NOTES: By Dr. Lauryn Echevarria. Date of progress note is 12/20/2017. SUBJECTIVE the patient remains in sinus rhythm. She denies any chest pain or discomfort. There is no shortness of breath is no PND orthopnea. She only has trace leg edema. The patient is able to get out of bed on her home and presents to be up in the chair. There is no TIA or CVA symptoms. The patient has no fever, and no symptoms of urinary tract infection. Renal function is back to normal. There is no ventricular arrhythmias seen, and no recurrence of atrial fibrillation. PHYSICAL EXAMINATION: The patient is morbidly obese, but well-groomed in no acute distress. 12/20/17 07:30 Temperature 97.6 F Temperature Oral Source Pulse Rate 67 Respiratory 24 H Rate Blood Pressure 113/64 Blood Pressure 80 Mean BP Location Right Arm BP Position Supine O2 Sat by Pulse 96 Oximetry Oxygen Flow 2.00 Rate Oxygen Delivery Nasal Cannula Method HEAD: Head is atraumatic normocephalic. EYES: Pupils are equal round regular reactive to light accommodation, extraocular movements are normal. There is no conjunctival pallor. There is no scleral icterus. ENT: Is negative. SKIN: There is no skin rashes or skin lesions. There is no petechia or ecchymosis. NECK: Is supple there is no JVD, there is no lymphadenopathy. Carotids equal without any bruits. There is no goiter. There is no accessory muscles of respiration in use. LUNGS: Is clear to auscultation percussion, without any rhonchi rales or wheezing. There is no chest wall tenderness. HEART: S1-S2 is heard, S1 is of variable intensity. There is no S3 gallop or S4 gallop. There is systolic murmur left sternal border and apex. There is no rub. ABDOMEN: Soft, obese. Nontender. Bowel sounds well heard. There is no hepatosplenomegaly. There is no rebound guarding or rigidity. EXTREMITIES: Femorals are deep, femorals are diminished. There is no femoral bruits. Leg pulses are diminished. There is no pedal edema. There is no cyanosis or clubbing. There is no DVT or cellulitis. 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 PSYCHIATRIC: Although the patient judgment and insight intact she is of slightly slow mentation. The patient does not appear to be agitated. She does not appear to be anxious 12/20/17 04:16 Sodium 136.5 L Potassium 4.0 Chloride 107 Carbon Dioxide 23 BUN 22 H Creatinine 0.99 Est GFR ( Amer) > 60 Glucose 133 H Calcium 8.2 L IMPRESSION/RECOMMENDATION: 1. Atrial flutter/fibrillation. Patient now converted to sinus rhythm. We will increase the patient's Eliquis to 5 mill grams p.o. twice daily. We will hold the patient's beta-vilma and continue Cardizem CD at 180 mg p.o. every 12 hours, in view of the patient's heart rate being in the 60s. As an outpatient will get a IV Lexiscan Cardiolite, an echocardiogram, and a 30-day event monitor. The event monitor to see if there is any recurrence of paroxysmal atrial fibrillation episodes.. This is been discussed with attending physician. 2. ACUTE pyelonephritis.: This is resolved. Continue antibiotics. 3. SEPTIC SHOCK: At present blood pressure is much improved . Patient has E. coli positive blood culture and urine cultures. Continue fluids and antibiotics. Note that the patient is improving and is no longer in septic shock. Note that subsequent blood and urine cultures are all negative for growth. 4. ACUTE RENAL Failure: Seems to be having an improved GFR, which is gone up to 55 mL/min. Nephrology on the case. 5. Renal stone: Patient states she passed the stone. Ultrasound of the kidney did not show any hydronephrosis or renal stone. There is a right renal cyst. Suspect renal function will return to normal. 6. History of hypertension: At present blood pressure is much improved allowing for increasing dose of Cardizem. 7. Diabetes mellitus: Continue antidiabetic regimen. 8. MORBID OBESITY: Later would discuss with the patient about need to reduce weight. Also as an outpatient she may need a sleep study to make sure she does not have a obstructive sleep apnea. Patient's medications have been reviewed and medications adjusted. Note 40 minutes spent on this patient more than 50% of time spent in direct patient care. Medical decision making is of moderate complexity. Cardiac status is stable, hence will sign off. Patient patient's daughter want the patient to follow-up with me in the office. Discussed with attending physician covering Dr. Buenrostro. THANKING you for allowing me to participate in the care of this patient.
[2017-12-21 05:12] LABS: ANION GAP 9 (5-19); BLOOD UREA NITROGEN 18 mg/dL (7-20); CALCIUM 8.5 mg/dL (8.4-10.2); CARBON DIOXIDE 25 mmol/L (22-30); CHLORIDE 104 mmol/L (98-107); GLUCOSE 144 mg/dL (75-110); POTASSIUM 4.1 mmol/L (3.6-5.0); SODIUM 137.6 mmol/L (137-145)
[2017-12-21] MEDS: PINDOLOL 5 MG PO SCH ×2 (07:01→17:12)
[2017-12-21] MEDS: CEFEPIME 2 GM/D5W RTU 2 GM/50 ML RTUPB IV SCH ×2 (09:12→21:41)
[2017-12-21] MEDS: DILTIAZEM HCL 180 MG CAPSULE.CR PO SCH ×2 (09:12→21:42)
[2017-12-21] MEDS: APIXABAN 5 MG TABLET PO SCH ×2 (09:13→17:12)
[2017-12-21] MEDS: FAMOTIDINE 20 MG TABLET PO SCH ×2 (09:13→21:42)
[2017-12-21] MEDS: INSULIN LISPRO 100 UNIT/ML 3 ML VIAL SUBCUT PRN ×3 (12:22→22:00)
--- NOTE | 2017-12-21 13:15 | PDOC PROGRESS REPORT ---
Subjective Progress Note for:: 12/21/17 Subjective:: No chest pain or difficulty with breathing. No fever or chills. No abdominal pain, nausea, or vomiting. Reason For Visit: SEPSIS Physical Exam Vital Signs: Temp Pulse Resp BP Pulse Ox 97.7 F 77 20 112/56 L 94 12/21/17 11:35 12/21/17 11:35 12/21/17 11:35 12/21/17 11:35 12/21/17 11:35 Intake & Output 12/20/17 12/21/17 12/22/17 06:59 06:59 06:59 Intake Total 1617 1639 50 Balance 1617 1639 50 Weight 142.9 kg 144.2 kg Physical Exam: General appearance: PRESENT: no acute distress, morbidly obese Head exam: PRESENT: atraumatic, normocephalic Eye exam: PRESENT: conjunctiva pink, EOMI, PERRLA. ABSENT: scleral icterus Ear exam: PRESENT: normal external ear exam Mouth exam: PRESENT: moist Respiratory exam: PRESENT: clear to auscultation bharath Cardiovascular exam: PRESENT: RRR. ABSENT: diastolic murmur, rubs, systolic murmur Vascular exam: ABSENT: pallor GI/Abdominal exam: PRESENT: normal bowel sounds, soft. ABSENT: distended, guarding, mass, organomegaly, rebound, tenderness Extremities exam: ABSENT: pedal edema Neurological exam: PRESENT: alert, awake, oriented to person, oriented to place , oriented to time, oriented to situation, CN II-XII grossly intact. ABSENT: motor sensory deficit Psychiatric exam: PRESENT: appropriate affect, normal mood. ABSENT: homicidal ideation, suicidal ideation Skin exam: PRESENT: dry, intact, warm. ABSENT: cyanosis, rash Results Laboratory Results: 12/19/17 05:08 12/21/17 04:11 12/21/17 04:11 Sodium 137.6 Potassium 4.1 Chloride 104 Carbon Dioxide 25 Anion Gap 9 BUN 18 Creatinine 0.92 Est GFR ( Amer) > 60 Est GFR (Non-Af Amer) > 60 Glucose 144 H Calcium 8.5 12/18/17 10:00 Catheterized Urine Urine Culture - Final NO GROWTH 2 DAYS Impressions: Chest X-Ray 12/14/17 21:26 IMPRESSION: No acute disease. Head CT 12/14/17 21:26 IMPRESSION: No acute intracranial hemorrhage. Abdomen/Pelvis CT 12/14/17 22:17 IMPRESSION: Mild left renal collecting system fullness and left perinephric and periureteral stranding. This may be due to recently passed calculus. No other renal calculi are noted. Calculus in the bladder may be due to recently passed calculus. Renal Ultrasound 12/16/17 00:00 IMPRESSION: 1. The examination is limited due to the patient's body habitus. 2. No evidence of hydronephrosis. 3. Right renal cyst. Assessment & Plan - Diagnosis (1) E. coli sepsis Is this a current diagnosis for this admission?: Yes (2) Hypertension Qualifiers: Hypertension type: essential hypertension Qualified Code(s): I10 - Essential (primary) hypertension Is this a current diagnosis for this admission?: Yes (3) Type 2 diabetes mellitus Qualifiers: Diabetes mellitus residential insulin use: without foundation assistant use Is this a current diagnosis for this admission?: Yes (4) Chronic atrial fibrillation Is this a current diagnosis for this admission?: Yes - Time Time Spent with patient: 25-34 minutes Medications reviewed and adjusted accordingly: Yes Anticipated discharge: Home with Homehealth Within: Other - Inpatient Certification Based on my medical assessment, after consideration of the patient's comorbidities, presenting symptoms, or acuity I expect that the services needed warrant INPATIENT care.: Yes I certify that my determination is in accordance with my understanding of Medicare's requirements for reasonable and necessary INPATIENT services [42 CFR 412.3e].: Yes Medical Necessity: Need Close Monitoring Due to Risk of Patient Decompensation, Need For Continuous Telemetry Monitoring, Need for IV Antibiotics, Risk of Complication if Not Cared For in Hospital Post Hospital Care: D/C Attending Ambulatory Care Documentation - Plan Summary Plan Summary: See covering attending physician orders.
[2017-12-22 05:43] LABS: ABSOLUTE BASOPHILS # (AUTO) 0.1 10^3/uL (0.0-0.2); ABSOLUTE EOSINOPHILS # (AUTO) 0.2 10^3/uL (0.0-0.6); ABSOLUTE LYMPHOCYTES (AUTO) 1.7 10^3/uL (0.5-4.7); ABSOLUTE MONOCYTES (AUTO) 0.7 10^3/uL (0.1-1.4); ABSOLUTE NEUT (AUTO) 10.8 10^3/uL (1.7-8.2); BASOPHILS % (AUTO) 0.7 % (0-2); EOSINOPHILS % (AUTO) 1.1 % (0-6); HEMATOCRIT 30.5 % (36.0-47.0); HEMOGLOBIN 10.1 g/dL (12.0-15.5); LYMPHOCYTES % (AUTO) 12.9 % (13-45); MEAN CORPUSCULAR HEMOGLOBIN 28.3 pg (27.0-33.4); MEAN CORPUSCULAR VOLUME 86 fl (80-97); MONOCYTES % (AUTO) 5.3 % (3-13); PLATELET COUNT 502 10^3/uL (150-450); RED BLOOD COUNT 3.56 10^6/uL (3.72-5.28); RED CELL DISTRIBUTION WIDTH 14.9 % (11.5-14.0); TOTAL CELLS COUNTED % (AUTO) 100 %; WHITE BLOOD COUNT 13.5 10^3/uL (4.0-10.5)
[2017-12-22] MEDS: PINDOLOL 5 MG PO SCH ×2 (06:30→17:22)
[2017-12-22] MEDS: DILTIAZEM HCL 180 MG CAPSULE.CR PO SCH (09:24)
[2017-12-22] MEDS: APIXABAN 5 MG TABLET PO SCH ×2 (09:25→17:21)
[2017-12-22] MEDS: FAMOTIDINE 20 MG TABLET PO SCH (09:25)
[2017-12-22 12:07] VITALS: BP 132/65
--- NOTE | 2017-12-22 12:23 | PDOC TRANSFER SUMMARY ---
General - Admit/Disc Date/PCP Admission Date/Primary Care Provider: 12/14/17 23:54 TYE MCCRACKEN MD Discharge Date: 12/22/17 - Discharge Diagnosis (1) Sepsis Is this a current diagnosis for this admission?: Yes Summary: Currently all resolving (2) Pyelonephritis Is this a current diagnosis for this admission?: Yes Summary: Currently all resolving repeat the ultrasound in 2 weeks finished the another 10 -day course of the p.o. antibiotic (3) Hypertension Is this a current diagnosis for this admission?: Yes Summary: Currently all stable continues to current medications (4) Acute kidney injury Is this a current diagnosis for this admission?: Yes Summary: Currently all resolved (5) Cardiomyopathy Is this a current diagnosis for this admission?: Yes Summary: Currently all stable with the EF is more than 60 follow-up with the cardiology (6) Altered mental status Is this a current diagnosis for this admission?: Yes Summary: Due to the sepsis currently all resolved (7) UTI (urinary tract infection) Is this a current diagnosis for this admission?: Yes Summary: Currently all stable (8) Type 2 diabetes mellitus Is this a current diagnosis for this admission?: Yes Summary: Continues to sliding-scale restart the Metformin (9) Atrial fibrillation Is this a current diagnosis for this admission?: Yes Summary: Continues to Cardizem and continues to Eliquis - Additional Information Discharge Diet: Diabetic Discharge Activity: Activity As Tolerated Prescriptions: Apixaban [Eliquis 5 mg Tablet] 5 mg PO BID #60 tablet Cefdinir [Omnicef 300 mg Capsule] 1 cap PO BID #14 capsule Diltiazem HCl [Cardizem Cd 180 mg Capsule] 180 mg PO Q12 #60 capsule.cr Famotidine [Pepcid 20 mg Tablet] 20 mg PO Q12 #60 tablet Insulin Lispro [Humalog Insulin (Lispro) 100 unit/mL] 0 - 12 unit SUBCUT ACHSP PRN #1 unit PRN Reason: Home Medications: Aspirin [Aspirin EC] 81 mg PO DAILY 12/15/17 Atorvastatin Calcium [Lipitor 40 mg Tablet] 40 mg PO QHS 12/15/17 Pindolol 5 mg PO BID 12/15/17 Raloxifene HCl [Evista 60 mg Tablet] 60 mg PO DAILY 12/15/17 Apixaban [Eliquis 5 mg Tablet] 5 mg PO BID #60 tablet 12/22/17 Cefdinir [Omnicef 300 mg Capsule] 1 cap PO BID #14 capsule 12/22/17 Diltiazem HCl [Cardizem Cd 180 mg Capsule] 180 mg PO Q12 #60 capsule.cr Famotidine [Pepcid 20 mg Tablet] 20 mg PO Q12 #60 tablet 12/22/17 Insulin Lispro [Humalog Insulin (Lispro) 100 unit/mL] 0 - 12 unit SUBCUT ACHSP PRN #1 unit 12/22/17 Metformin HCl [Glucophage 500 mg Tablet] 500 mg PO BID #60 12/22/17 Ramipril [Altace 10 mg Capsule] 5 mg PO DAILY #0 12/22/17 History of Present Illness Admission Date/PCP: 12/14/17 23:54 TYE MCCRACKEN MD History of Present Illness: WILD CALDERON is a 72 year old female This is a 72-year-old female with a significant history of the type 2 diabetes mellitus with the last A1c is less than 7 and history of the hypertensions hyperlipidemia and a history of the cardiomyopathy currently see a Dr. Echevarria with the EF is 70% with a history of the renal stoneAnd a history of the stent placement in the past brought to the emergency department by the daughterThe complaining of some more confusions and patient was complained of some abdominal pain yesterday In the emergency department patient have a CT scan of the abdomen and pelvis was done with so some possible left-sided pyelonephritis and the patient's white count was 23,000 and patient was confused Patient's have a no obstructions in the collecting systems Patient have a CT of the head was negative for any acute finding Since BUN and creatinine is also elevated which was normal on the last visit in my office When I saw the patient patient is alert awake asking for the food remember my name but seems to be more confused to me Patient's denied any chest pain denied any shortness of the breath Denied any abdominal pain Patient admits this point admitted for the sepsis pyelonephritis and we consult the urologist and histology assistant for further evaluations Hospital Course Hospital Course: This is a 72-year-old female as medical problem above came to the emergency department with altered mental status and a fever and chills and patient was diagnosed with a pyelonephritis and acute renal failure and the patient's with the gram-negative septicemia and admitting in the hospital for the IV fluid and IV antibiotic Patient's response very well with the IV antibiotics patient's white count is also going down patient's remained afebrile and subsequent blood culture and urine cultures all negative's Also developed the A. fib with a ventricular response patient seen by Dr. Echevarria start on a Cardizem's and a p.o. Eliquis Recent also seen by the nephrology Dr. Khoury and seen by the urologist and suggest no need for any further surgical interventions Patient is kidney function is also remains back to normal His p.o. intake is good She does still feel weak at this point decided to send to the rehab Repeat the CBC and Chem-7 in 3 days Continues to physical therapy and fall precautions Discussed with the patient about Eliquis and potential side effect and fall precaution patient understand very well by myself and Dr. Echevarria Physical Exam Vital Signs: Temp Pulse Resp BP Pulse Ox 97.7 F 77 18 132/65 H 97 12/22/17 11:23 12/22/17 11:23 12/22/17 11:23 12/22/17 11:23 12/22/17 11:23 Intake & Output 12/21/17 12/22/17 12/23/17 06:59 06:59 06:59 Intake Total 1639 1182 Output Total 600 Balance 1639 582 Weight 144.2 kg 143.9 kg General appearance: PRESENT: no acute distress, well-developed, well-nourished Head exam: PRESENT: atraumatic, normocephalic Eye exam: PRESENT: conjunctiva pink, EOMI, PERRLA. ABSENT: scleral icterus Ear exam: PRESENT: normal external ear exam Mouth exam: PRESENT: moist, tongue midline Neck exam: ABSENT: carotid bruit, JVD, lymphadenopathy, thyromegaly Respiratory exam: PRESENT: clear to auscultation bharath. ABSENT: rales, rhonchi, wheezes Cardiovascular exam: PRESENT: RRR. ABSENT: diastolic murmur, rubs, systolic murmur Pulses: PRESENT: normal dorsalis pedis pul Vascular exam: PRESENT: normal capillary refill GI/Abdominal exam: PRESENT: normal bowel sounds, soft. ABSENT: distended, guarding, mass, organolmegaly, rebound, tenderness Rectal exam: PRESENT: deferred Extremities exam: PRESENT: full ROM. ABSENT: calf tenderness, clubbing, pedal edema Musculoskeletal exam: PRESENT: ambulatory Neurological exam: PRESENT: alert, awake, oriented to person, oriented to place , oriented to time, oriented to situation, CN II-XII grossly intact. ABSENT: motor sensory deficit Psychiatric exam: PRESENT: appropriate affect, normal mood. ABSENT: homicidal ideation, suicidal ideation Skin exam: PRESENT: dry, intact, warm. ABSENT: cyanosis, rash Results Laboratory Results: 12/22/17 05:04 12/21/17 04:11 12/22/17 05:04 WBC 13.5 H RBC 3.56 L Hgb 10.1 L Hct 30.5 L MCV 86 MCH 28.3 MCHC 33.0 RDW 14.9 H Plt Count 502 H Seg Neutrophils % 80.0 H Lymphocytes % 12.9 L Monocytes % 5.3 Eosinophils % 1.1 Basophils % 0.7 Absolute Neutrophils 10.8 H Absolute Lymphocytes 1.7 Absolute Monocytes 0.7 Absolute Eosinophils 0.2 Absolute Basophils 0.1 Impressions: Chest X-Ray 12/14/17 21:26 IMPRESSION: No acute disease. Head CT 12/14/17 21:26 IMPRESSION: No acute intracranial hemorrhage. Abdomen/Pelvis CT 12/14/17 22:17 IMPRESSION: Mild left renal collecting system fullness and left perinephric and periureteral stranding. This may be due to recently passed calculus. No other renal calculi are noted. Calculus in the bladder may be due to recently passed calculus. Renal Ultrasound 12/16/17 00:00 IMPRESSION: 1. The examination is limited due to the patient's body habitus. 2. No evidence of hydronephrosis. 3. Right renal cyst. Transfer Plan - Time Spent with Patient Time spent with patient: Greater than 30 Minutes Qualifiers - * PATIENT BEING DISCHARGED WITH ANY OF THE FOLLOWING DIAGNOSIS: No VTE patient discharged on overlapping Therapy?: Yes Plan Time Spent: Greater than 30 Minutes - Discharge to the rehab Fall precaution due to the Eliquis Check a CBC and Chem-7 in 3 days Follow with the Dr. Khoury histology assistant in 1 week and follow with the Dr. Echevarria as outpatient
[2017-12-22] MEDS ORDERED: AMOXICILLIN TR/POT CLAVULANATE 500-125 MG TAB PO SCH (14:00)
[2017-12-22] MEDS: INSULIN LISPRO 100 UNIT/ML 3 ML VIAL SUBCUT PRN (14:21)
== END 2017-12-22 17:49 | DRG 871 ==
LOC: ER 20:58 → EH 23:54 → 3N 12-15 04:30
PROVIDERS: ADMIT Family Medicine; ATTEND Family Medicine
DX: A41.51 Sepsis due to Escherichia coli [E. coli] (principal); R65.21 Severe sepsis with septic shock; K72.00 Acute and subacute hepatic failure without coma; N39.0 Urinary tract infection, site not specified; N17.9 Acute kidney failure, unspecified; I42.9 Cardiomyopathy, unspecified; Z68.43 Body mass index [BMI] 50.0-59.9, adult; I48.91 Unspecified atrial fibrillation; N21.0 Calculus in bladder; E11.8 Type 2 diabetes mellitus with unspecified complications; I10 Essential (primary) hypertension; E78.5 Hyperlipidemia, unspecified; I25.10 Atherosclerotic heart disease of native coronary artery without angina pectoris; R41.82 Altered mental status, unspecified; R31.9 Hematuria, unspecified; E66.01 Morbid (severe) obesity due to excess calories; Z79.84 Long term (current) use of oral hypoglycemic drugs; Z79.82 Long term (current) use of aspirin; Z79.899 Other long term (current) drug therapy
CPT/HCPCS: 36415; 36600; 70450; 71045; 74176; 76770; 80048; 80053; 80202; 81001; 82803; 82962; 83605; 85025; 85610; 87040; 87077; 87086; 87088; 87186; 87493; 90686; 93005; 93010; 94640; 96365; 99285; G8978-GP; G8979-GP; J0692; J1160; J1644; J1815; J2543; J3370; J3490; J7060; J7620; S0028

== ENCOUNTER 2018-05-28 20:03 | Emergency (ER) | payer MEDICARE, MEDICAID ==
[2018-05-28 22:47] LABS: ABSOLUTE EOSINOPHILS # (AUTO) 0.1 10^3/uL (0.0-0.6); ABSOLUTE LYMPHOCYTES (AUTO) 0.8 10^3/uL (0.5-4.7); ABSOLUTE MONOCYTES (AUTO) 1.3 10^3/uL (0.1-1.4); ABSOLUTE NEUT (AUTO) 10.7 10^3/uL (1.7-8.2); BASOPHILS % (AUTO) 0.3 % (0-2); EOSINOPHILS % (AUTO) 0.5 % (0-6); HEMOGLOBIN 11.1 g/dL (12.0-15.5); LYMPHOCYTES % (AUTO) 5.9 % (13-45); MEAN CORPUSCULAR HEMOGLOBIN 27.7 pg (27.0-33.4); MEAN CORPUSCULAR HGB CONC 33.5 g/dL (32.0-36.0); MEAN CORPUSCULAR VOLUME 83 fl (80-97); MONOCYTES % (AUTO) 10.3 % (3-13); PLATELET COUNT 329 10^3/uL (150-450); RED BLOOD COUNT 3.99 10^6/uL (3.72-5.28); RED CELL DISTRIBUTION WIDTH 14.7 % (11.5-14.0); TOTAL CELLS COUNTED % (AUTO) 100 %; WHITE BLOOD COUNT 12.8 10^3/uL (4.0-10.5)
[2018-05-28 23:06] LABS: AMORPHOUS SEDIMENT,URINE TRACE /HPF; APPEARANCE,URINE CLOUDY; BILIRUBIN,URINE NEGATIVE (NEGATIVE); COLOR,URINE AMBER; GLUCOSE, URINE NEGATIVE (NEGATIVE); KETONES,URINE NEGATIVE (NEGATIVE); LEUKOCYTE ESTERASE,URINE LARGE (NEGATIVE); NITRITE,URINE NEGATIVE (NEGATIVE); PROTEIN,URINE 30 mg/dL (NEGATIVE); URINE SPECIFIC GRAVITY 1.017
[2018-05-28 23:43] LABS: ALANINE AMINOTRANSFERASE 32 U/L (9-52); ALBUMIN 3.4 g/dL (3.5-5.0); ALKALINE PHOSPHATASE 80 U/L (38-126); ANION GAP 11 (5-19); ASPARTATE AMINO TRANSFERASE 25 U/L (14-36); BILIRUBIN,DIRECT 0.7 mg/dL (0.0-0.4); BILIRUBIN,TOTAL 2.1 mg/dL (0.2-1.3); BLOOD UREA NITROGEN 17 mg/dL (7-20); CALCIUM 8.8 mg/dL (8.4-10.2); CARBON DIOXIDE 27 mmol/L (22-30); CHLORIDE 98 mmol/L (98-107); GLUCOSE 153 mg/dL (75-110); POTASSIUM 3.8 mmol/L (3.6-5.0); SODIUM 135.8 mmol/L (137-145); TOTAL PROTEIN 6.6 g/dL (6.3-8.2)
[2018-05-29] MEDS ORDERED: CEFTRIAXONE INJ 1000 MG VIAL IM ONE (00:09)
[2018-05-29] MEDS ORDERED: LIDOCAINE 1% INJ-PF (10 MG/ML) 30 ML SDV NEB ONE (00:09)
[2018-05-29] MEDS ORDERED: ACETAMINOPHEN 325 MG TABLET PO ONE (00:14)
--- NOTE | 2018-05-29 00:14 | ER Document Report ---
ED General - General Chief Complaint: Nausea/Vomiting Stated Complaint: NAUSEA Time Seen by Provider: 05/28/18 23:31 Primary Care Provider: CHRISTIANO BLAIR MD [NO LOCAL MD] - 06/01/18 Notes: Patient is a 72-year-old female presents with complaint of some cough and congestion and feels a little bit weaker than normal. She says symptoms have been ongoing for about 3-4 days. Says she coughs up white phlegm. No chest pain. No fevers at home. Does not feel short of breath. She denies any dysuria but does have a little bit of mild suprapubic pain. She does mention that today she did have a little bit of watery stool in the did burn after she had a bowel movement when she wiped. She has any blood in her stool. She does have a history of previous pyelonephritis and was hospitalized due to sepsis just over a year ago. She is followed by Dr. Buenrostro. No other complaints at this time. TRAVEL OUTSIDE OF THE [place] IN LAST 30 DAYS: No - Related Data Allergies/Adverse Reactions: No Known Allergies Allergy (Verified 01/28/17 12:35) Past Medical History - Social History Smoking Status: Former Smoker Chew tobacco use (# tins/day): No Frequency of alcohol use: None Drug Abuse: None Family History: None, Reviewed & Not Pertinent Patient has suicidal ideation: No Patient has homicidal ideation: No - Past Medical History Cardiac Medical History: Reports: Hx Coronary Artery Disease - HIGH CHOLESTEROL, Hx Hypertension Denies: Hx Heart Attack Pulmonary Medical History: Reports: Hx Pneumonia - 1 year ago Denies: Hx Asthma, Hx Bronchitis, Hx COPD, Hx Tuberculosis Neurological Medical History: Denies: Hx Cerebrovascular Accident, Hx Seizures Endocrine Medical History: Reports: Hx Diabetes Mellitus Type 2 Renal/ Medical History: Denies: Hx Peritoneal Dialysis Musculoskeletal Medical History: Reports Hx Arthritis - "IN BACK" Psychiatric Medical History: Denies: Hx Depression Past Surgical History: Reports: Hx Hysterectomy. Denies: Hx Pacemaker - Immunizations Hx Diphtheria, Pertussis, Tetanus Vaccination: No Hx Pneumococcal Vaccination: 03/24/12 Review of Systems - Review of Systems Notes: My Normal Review Basic REVIEW OF SYSTEMS: CONSTITUTIONAL : [place] weak. No fevers. EENT: Denies eye, ear, throat, or mouth pain or symptoms. Denies nasal or sinus congestion. CARDIOVASCULAR: Denies chest pain. RESPIRATORY: Congestion GASTROINTESTINAL: Mild suprapubic discomfort. Remainder of abdomen is nontender.. Some nausea. No vomiting., 1 episode of watery stool. GENITOURINARY: Denies difficulty urinating, painful urination, burning, frequency, or blood in urine. FEMALE GENITOURINARY: Denies vaginal bleeding, abnormal or irregular periods. LMP: MUSCULOSKELETAL: Denies neck or back pain or joint pain or swelling. SKIN: Denies rash or skin lesions. NEUROLOGICAL: Denies altered mental status or loss of consciousness. Denies headache. Denies weakness or paralysis or loss of use of either side. Denies problems with gait or speech. Denies sensory or motor loss. ALL OTHER SYSTEMS REVIEWED AND NEGATIVE. Physical Exam - Vital signs Vitals: Temp Pulse Resp BP Pulse Ox 100.1 F 95 19 138/85 H 95 05/28/18 20:33 05/28/18 20:33 05/28/18 20:33 05/28/18 20:33 05/28/18 20:33 - Notes Notes: General Appearance: Well nourished, alert, cooperative, no acute distress, no obvious discomfort. Well-appearing. Vitals: reviewed, See vital signs table. Head: no swelling or tenderness to the head Eyes: PERRL, EOMI, Conjuctiva clear Mouth: No decreasd moisture Throat: No tonsillar inflammation, No airway obstruction, No lymphadenopathy Lungs: No wheezing, No rales, No rhonci, No accessory muscle use, good air exchange bilaterally. Heart: Normal rate, Regular rythm, No murmur, no rub Abdomen: Normal BS, soft, No rigidity, No abdominal tenderness, No guarding, no rebound, no abdominal masses, no organomegaly Rectal exam: No redness or swelling around the rectum. Small external hemorrhoids. Extremities: strength 5/5 in all extremities, good pulses in all extremities, no swelling or tenderness in the extremities, no edema. Skin: warm, dry, appropriate color, no rash Neuro: speech clear, oriented x 3, normal affect, responds appropriately to questions. Course - Re-evaluation Re-evalutation: 05/29/18 00:11 Patient's urinalysis shows evidence of urinary tract infection. We will give her a dose of Rocephin. Her lung travis are clear. Chest x-ray does not show any evidence of pneumonia. Laboratory evaluation is unremarkable. Vital signs are stable. I feel she safe to be discharged home. Strongly encouraged her to have a low threshold to return to ER if she has fevers, increasing feelings of weakness, vomiting, pain, or if she feels that she is worsening in any way. Patient follow-up closely with her primary care doctor. Patient agrees with plan will be discharged home. Dictation of this chart was performed using voice recognition software; therefore, there may be some unintended grammatical errors. - Vital Signs Vital signs: Temp Pulse Resp BP Pulse Ox 100.1 F 95 19 138/85 H 95 05/28/18 20:33 05/28/18 20:33 05/28/18 20:33 05/28/18 20:33 05/28/18 20:33 - Laboratory Result Diagrams: 05/28/18 22:10 05/28/18 22:10 Laboratory results interpreted by me: 05/28/18 05/28/18 05/28/18 22:10 22:10 22:10 WBC 12.8 H Hgb 11.1 L Hct 33.0 L RDW 14.7 H Seg Neutrophils % 83.0 H Lymphocytes % 5.9 L Absolute Neutrophils 10.7 H Sodium 135.8 L Creatinine 1.79 H Est GFR ( Amer) 34 L Est GFR (Non-Af Amer) 28 L Glucose 153 H Total Bilirubin 2.1 H Direct Bilirubin 0.7 H Albumin 3.4 L Urine Protein 30 H Urine Urobilinogen 4.0 H Ur Leukocyte Esterase LARGE H Urine Ascorbic Acid 20 H Discharge - Discharge Clinical Impression: Cough UTI (urinary tract infection) Qualifiers: Urinary tract infection type: site unspecified Hematuria presence: without hematuria Qualified Code(s): N39.0 - Urinary tract infection, site not specified Condition: Good Disposition: HOME, SELF-CARE Additional Instructions: Your urinalysis shows evidence of urinary tract infection. This could be contributing to your weakness. I have given you a shot of an antibiotic here called Rocephin. I will place you on an antibiotic that you will take for the next several days. You have no wheezing on exam. You cough is most likely related to a viral illness. Please have a low threshold to return to ER if you have difficulty breathing, worsening cough, fevers, abdominal pain, or if you feel that you are worsening in any way. To help prevent the burning and irrita tion around the rectum please use a wet wipe or moist disposable cleaning cloth to clean the rectum after using dry toilet paper. Prescriptions: Cephalexin Monohydrate [Keflex 500 mg Capsule] 500 mg PO BID #14 capsule Referrals: CHRISTIANO BLAIR MD [NO LOCAL MD] - 06/01/18
[2018-05-29 00:31] VITALS: BP 153/96
== END 2018-05-29 00:50 | disposition home or self-care (01) ==
LOC: ER 20:03
DX: N39.0 Urinary tract infection, site not specified (principal); R05 Cough; R11.2 Nausea with vomiting, unspecified; R68.89 Other general symptoms and signs; E78.00 Pure hypercholesterolemia, unspecified; I10 Essential (primary) hypertension; E11.9 Type 2 diabetes mellitus without complications; Z90.710 Acquired absence of both cervix and uterus
CPT/HCPCS: 99283; 96372; 36415; 87086; 85025; 87088; 80053; 81001; 87186; A9270; J3490; J0696

== ENCOUNTER → 2018-06-29 | Outpatient (CLI) | payer MEDICARE, MEDICAID ==
--- NOTE | 2018-06-29 12:14 | RADIOLOGY REPORT (SQ) ---
EXAM DESCRIPTION: U/S RETROPERITON (RENAL/AORTA) COMPLETED DATE/TIME: 06/29/2018 11:04 am REASON FOR STUDY: CHRONIC KIDNEY DISEASE N18.9 CHRONIC KIDNEY DISEASE, UNSPECIFIED COMPARISON: Renal ultrasound examination dated 12/16/2017. CT abdomen and pelvis examination dated . TECHNIQUE: Dynamic and static grayscale images acquired of the kidneys and bladder and recorded on P ACS. Additional selected color Doppler and spectral images recorded. LIMITATIONS: The examination is limited due to the patient's body habitus. FINDINGS: RIGHT KIDNEY: The right kidney measures 12.0 x 6.5 x 5.3 cm, basically unchanged in size from the prior examination. Normal echogenicity. Multiple cysts are identified with the largest in the upper pole which measures 3.2 x 3.3 x 3.9 cm. No hydronephrosis. No calcifications. LEFT KIDNEY: The left kidney measures 11.8 x 5.3 x 5.3 cm, basically unchanged in size from the prio r examination. Normal echogenicity. Multiple cysts with one of the largest in the mid pole which me asures 3.3 x 2.7 x 2.7 cm. No hydronephrosis. No calcifications. BLADDER: No masses bilateral ureteral jets are not visualized. OTHER FINDINGS: No other significant finding. IMPRESSION: 1. The examination is limited due to the patient's body habitus. 2. Multiple bilateral renal cysts which are better delineated on the current study. These findings correlate to the CT abdomen and pelvis examination dated 12/14/2017. 3. No evidence of hydronephrosis. TECHNICAL DOCUMENTATION: JOB ID: [id number] [employer]- All Rights Reserved Reading location - IP/workstation name: [email or web address]
== END ==
LOC: RAD 11:38
PROVIDERS: ATTEND Family Medicine
DX: N18.9 Chronic kidney disease, unspecified (principal); Q61.02 Congenital multiple renal cysts
CPT/HCPCS: 76770

== ENCOUNTER → 2018-11-06 | Outpatient (CLI) | payer MEDICARE, MEDICAID ==
--- NOTE | 2018-11-06 16:30 | WOMENS IMAGING REPORT ---
EXAM DESCRIPTION: 3D SCREENING MAMMO BILAT COMPLETED DATE/TIME: 11/06/2018 4:19 pm REASON FOR STUDY: Z12.31 SCREENING MAMMO Z12.31 ENCNTR SCREEN MAMMOGRAM FOR MALIGNANT NEOPLASM OF B RE COMPARISON: 09/16/2016 and 06/06/2014. EXAM PARAMETERS: Views: Standard craniocaudal and mediolateral oblique views of each breast recorded using digital acquisition and breast tomosynthesis. Read with the assistance of CAD. .[facility] - R2 Urinalysis Technician Version 9.2 LIMITATIONS: None. FINDINGS: No suspicious masses, suspicious calcifications or architectural distortion. No areas of c oncern. IMPRESSION: NEGATIVE MAMMOGRAM. BIRADS 1. BREAST DENSITY: a. The breasts are almost entirely fatty. BIRAD: ASSESSMENT: 1 NEGATIVE RECOMMENDATION: ROUTINE SCREENING COMMENT: The patient has been notified of the results by letter per MQSA requirements. Additional no tification policies are in place for contacting patient with suspicious or incomplete findings. Quality ID #[id number]: The [employer] recommends an annual screening mammogram for women aged 40 years or over. This facility utilizes a reminder system to ensure that all patients receive reminder letters, and/or direct phone calls for appointments. This includes reminders for routine scr eening mammograms, diagnostic mammograms, or other Breast Imaging Interventions when appropriate. Th is patient will be placed in the appropriate reminder system. TECHNICAL DOCUMENTATION: FINDING NUMBER: (1) ASSESSMENT: (1) JOB ID: [id number] [employer]- All Rights Reserved Reading location - IP/workstation name: [email or web address]
== END ==
LOC: WI 15:45
PROVIDERS: ATTEND Family Medicine
DX: Z12.31 Encounter for screening mammogram for malignant neoplasm of breast (principal)
CPT/HCPCS: 77063; 77067

== ENCOUNTER 2019-03-10 07:54 | Day surgery (SDC) | payer MEDICARE, MEDICAID ==
[~2019-03-10 07:54] MED LIST: CHONDR SU A NA/HYALUR INTRAOC KIT (SURGICARE) ONE; EPINEPHRINE INJ/PF 1 MG/1 ML AMPULE ONE; KETOROLAC TROMETHAMINE 0.45% 4 DROP/0.4 ML DROPERETTE OD PRN; LIDOCAINE 1%/PHENYLEPHRINE 1.5% 1 ML VIAL ONE
[2019-03-10] MEDS: TETRACAINE HCL 0.5% OPH SOLN 4 ML OD PRN ×3 (08:43→09:14)
[2019-03-10] MEDS: CYCLOPENTOLATE 0.2%/PHENYLEPHRINE 1% OPH SOLN 2 ML OD PRN ×3 (08:44→09:06)
[2019-03-10] MEDS: TROPICAMIDE 1% OPH SOLN 15 ML OD PRN ×3 (08:44→09:06)
[2019-03-10] MEDS: BESIFLOXACIN HCL 0.6% OPH SUSP 5 ML BOTTLE OD PRN ×4 (08:44→09:37)
[2019-03-10] MEDS ORDERED: MIDAZOLAM 2 MG/2 ML INJ ONE ×2 (09:05→09:06)
[2019-03-10] MEDS ORDERED: FENTANYL CITRATE INJ/PF 100 MCG/2 ML AMPUL ONE (09:05)
[2019-03-10] MEDS: DORZOLAMIDE HCL 2%/TIMOLOL MALEAT 0.5% OPH SOLN 10 ML OD PRN ×2 (09:37)
== END 2019-03-10 10:12 | disposition home or self-care (01) ==
LOC: SC 07:54
PROVIDERS: ATTEND Ophthalmology
DX: H25.11 Age-related nuclear cataract, right eye (principal); E11.9 Type 2 diabetes mellitus without complications; I10 Essential (primary) hypertension; E78.00 Pure hypercholesterolemia, unspecified; I49.9 Cardiac arrhythmia, unspecified; Z79.4 Long term (current) use of insulin; Z79.01 Long term (current) use of anticoagulants; Z79.84 Long term (current) use of oral hypoglycemic drugs; Z79.899 Other long term (current) drug therapy
CPT/HCPCS: 66984; 82962; 00142; V2632; J2250; J3490 ×2; A9270; J0171; J3010; J2370; 142

== ENCOUNTER 2019-03-22 07:13 | Day surgery (SDC) | payer MEDICARE, MEDICAID ==
[~2019-03-22 07:13] MED LIST changes: -CHONDR SU A NA/HYALUR INTRAOC KIT (SURGICARE) ONE; -EPINEPHRINE INJ/PF 1 MG/1 ML AMPULE ONE; -KETOROLAC TROMETHAMINE 0.45% 4 DROP/0.4 ML DROPERETTE OD PRN; +KETOROLAC TROMETHAMINE 0.45% 4 DROP/0.4 ML DROPERETTE OS PRN; -LIDOCAINE 1%/PHENYLEPHRINE 1.5% 1 ML VIAL ONE
[2019-03-22] MEDS ORDERED: EPINEPHRINE INJ/PF 1 MG/1 ML AMPULE ONE (07:18)
[2019-03-22] MEDS ORDERED: LIDOCAINE 1%/PHENYLEPHRINE 1.5% 1 ML VIAL ONE (07:18)
[2019-03-22] MEDS ORDERED: CHONDR SU A NA/HYALUR INTRAOC KIT (SURGICARE) ONE (07:18)
[2019-03-22] MEDS: BESIFLOXACIN HCL 0.6% OPH SUSP 5 ML BOTTLE OS PRN ×4 (08:04→09:00)
[2019-03-22] MEDS: CYCLOPENTOLATE 0.2%/PHENYLEPHRINE 1% OPH SOLN 2 ML OS PRN ×3 (08:04→08:24)
[2019-03-22] MEDS: TROPICAMIDE 1% OPH SOLN 15 ML OS PRN ×3 (08:04→08:24)
[2019-03-22] MEDS: TETRACAINE HCL 0.5% OPH SOLN 4 ML OS PRN ×3 (08:05→08:40)
[2019-03-22] MEDS ORDERED: MIDAZOLAM 2 MG/2 ML INJ ONE (08:20)
[2019-03-22] MEDS: DORZOLAMIDE HCL 2%/TIMOLOL MALEAT 0.5% OPH SOLN 10 ML OS PRN ×2 (09:00)
== END 2019-03-22 09:46 | disposition home or self-care (01) ==
LOC: SC 07:13
PROVIDERS: ATTEND Ophthalmology
DX: H25.12 Age-related nuclear cataract, left eye (principal); Z98.41 Cataract extraction status, right eye; Z79.01 Long term (current) use of anticoagulants; Z79.84 Long term (current) use of oral hypoglycemic drugs; Z79.899 Other long term (current) drug therapy; E11.9 Type 2 diabetes mellitus without complications; I10 Essential (primary) hypertension; E78.00 Pure hypercholesterolemia, unspecified; E66.9 Obesity, unspecified
CPT/HCPCS: 82962; 00142; 66984; V2632; J2250; J3490 ×2; A9270; J0171; J2370; 142